=== PATIENT | female | born 1985 | race Caucasian/White ===

== ENCOUNTER → 2018-04-20 12:29 | Outpatient (CLI) | payer OTHER, MEDICAID, SELFPAY ==
--- NOTE | 2018-04-20 | DI.RAD.S_ITS ---
PROCEDURE: XR FOOT RT 2V INDICATIONS: RT FOOT 3RD TOE FRACTURE TECHNIQUE: 2 views of the foot were acquired. COMPARISON: None. FINDINGS: Bones: No fractures or dislocations. No suspicious bony lesions. Soft tissues: No tibiotalar joint effusion. Achilles tendon appears normal. IMPRESSION: A fracture is not seen. Dictated by: Say Murillo M.D. on 04/20/2018 at 13:16 Approved by: Say Murillo M.D. on 04/20/2018 at 13:16
== END ==
PROVIDERS: PCP Internal Medicine; Visit Provider Internal Medicine
DX: S92.501A Displaced unspecified fracture of right lesser toe(s), initial encounter for closed fracture (principal)
CPT/HCPCS: 73620

== ENCOUNTER 2018-09-20 16:45 | Emergency (ER) | payer OTHER, MEDICAID, SELFPAY ==
[2018-09-20 17:04] VITALS: BP 132/88; PULSE 71; RESP 18; TEMP 37; O2SAT 99; BMI 20.4
--- NOTE | 2018-09-20 17:46 | DI.US.S_ITS ---
PROCEDURE: US OB <= 14 WEEKS FETUS INDICATIONS: BLEEDING OUTSIDE/PRIOR DATING DATA: Last menstrual period (LMP): 07/31/18. LMP-based estimated date of delivery (LATONIA): 05/07/19. First dating scan (date and location): 09/20/18. Estimated date of delivery (LATONIA) from first dating scan: 05/15/19. TECHNIQUE: Real-time scanning was performed of the fetus and maternal pelvic organs, with image documentation. Endovaginal scanning was also performed to better visualize the fetus and maternal ovaries. COMPARISON: None. FINDINGS: Embryo: 30 intrauterine identified. pole is identified. [place]-rump length measures 0.45 cm corresponding to an ultrasound age of 6 weeks one day. heart rate measured 95 beats per minute. Gestational sac is irregular and contains debris. Measurement variability in dating: +/- 4 weeks by LMP, +/- 7 days by mean sac diameter (use before 6 weeks gestation if crown-rump length not able to be measured), +/- 5 days by crown-rump length (up to 8 weeks 6 days gestation), +/- 7 days by crown-rump length (up to 13 weeks 6 days gestation). Maternal organs: Right adnexa is not identified and cannot be evaluated. Corpus luteal cyst noted in the left adnexa. Limited images through the kidneys demonstrate no hydronephrosis. IMPRESSION: 1. Single living intrauterine with ultrasound estimated age of 6 weeks 1 day corresponding to ultrasound LATONIA of 05/15/19. 2. Gestational sac is markedly irregular and contains internal debris or. heart rate is low at 95 beats per minute. Findings concerning for threatened . Dictated by: Lupis Bell MD, PhD on 09/20/2018 at 21:02 Approved by: Lupis Bell MD, PhD on 09/20/2018 at 21:05
--- NOTE | 2018-09-20 18:05 | PC.NURSE ---
Patient reports her LMP was 07/31/18 and she had what she thought was a period from 08/24-08/27. Her period is normally very light, like a tsp a day for 5 days and this was similar, about a tsp of blood but only lasted for 3 days. She thought it was a period but then developed sever morning sickness and took a test on 09/11 that was positive. On 09/14 she starting spotting again and has had about a tsp a day for blood for the last week, some brown, some bright red. Mild cramping here and there. Still having severe morning sickness.
--- NOTE | 2018-09-20 19:00 | ED.PREGNANCY ---
HPI - General Chief complaint: Urogenital-Female Stated complaint: 7wks preg,lots of bleeding Time Seen by Provider: 09/20/18 17:45 Source: patient and family Mode of arrival: ambulatory Limitations: no limitations History of Present Illness HPI Narrative: 33-year-old female nonsmoker is a at 7 weeks who complains of bleeding over the past few days and pelvic discomfort similar to when she has a period. Pain is worse with motion and improves with rest. She has not become dizzy nor weak or lightheaded. She has not bled significantly, not enough to saturate a pad. She denies any fever or chills. She denies dysuria, frequency or urgency. She had her 1st child by in [place] but hopes to deliver her 2nd vaginally. MD Complaint: vaginal bleeding Onset (ago): day(s) Pain Consistency: intermittent Location: pelvis Severity: mild Quality: Aching and Cramping Radiation: pelvis Relieving factors: rest Exacerbating factors: movement Associated symptoms: vaginal bleeding Vaginal bleeding: light Patient : Yes OB History - Current : no complications care: none Related Data : 2 Para: 1 Home Medications Medication Instructions Recorded Confirmed multivitamin tablet 1 tab PO DAILY 12/31/17 12/31/17 Allergies Allergy/AdvReac Type Severity Reaction Status Date / Time No Known Drug Allergies Allergy Verified 10/30/17 10:18 Review of Systems Constitutional Denies chills, Denies fever(s), Denies lethargy and Denies weakness Eyes Denies change in vision, Denies eye discharge, Denies irritation and Denies loss of vision ENT Ears, Nose, Mouth, and Throat: Denies change in voice, Denies neck pain and Denies sore throat Cardiovascular Denies chest pain, Denies irregular heart rhythm, Denies lightheadedness, Denies palpitations, Denies dyspnea, Denies dyspnea on exertion and Denies orthopnea Respiratory Denies cough, Denies dyspnea, Denies dyspnea on exertion and Denies wheezing Gastrointestinal Gastrointestinal: Denies abdominal pain, Denies change in bowel habits, Denies diarrhea, Denies nausea and Denies vomiting Genitourinary Reports abnormal vaginal bleeding, Denies hematuria, Reports pelvic pain, Denies flank pain, Denies urinary incontinence and Denies urinary urgency Musculoskeletal Denies neck pain Integumentary/Breasts Denies pruritus, Denies erythema, Denies rash and Denies wounds Neurologic Denies confusion, Denies loss of vision and Denies weakness Psychiatric Denies anxiety, Denies confusion, Denies depression, Denies homicidal ideation and Denies suicidal ideation Endocrine Denies palpitations Hematologic/Lymphatic Denies easy bruising Allergic/Immunologic Denies wheezing PMFSH - Past Medical History Medical history: Reports non-contributory Surgical history: Reports non-contributory 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 Extraoccular muscles are intact bilaterally. There is no subconjunctival hemorrhage or exudate. CHEST: Lungs are clear to auscultation bilaterally and free of wheezes, rales, or rhonchi. Heart rate is regular rhythm, there are no murmurs, clicks, rubs, or gallops. There is no chest wall tenderness. ABD: Abdomen is soft and mildly tender in the suprapubic region There is no guarding or rebound. Bowel sounds are normal in all 4 quadrants. There is no mass or organomegaly. EXT: Full painless ROM of all extremities with no loss of sensation or strength. SKIN: Warm, pink, and dry. No erythema or rash Initial Vital Signs Initial Vital Signs: Vital Signs Temperature 98.6 F 09/20/18 17:04 Pulse Rate 71 09/20/18 17:04 Respiratory Rate 18 09/20/18 17:04 Blood Pressure 132/88 09/20/18 17:04 Pulse Oximetry 99 09/20/18 17:04 Course Orders Ordered: ED Orders 09/20/18 17:46 US OB <= 14 weeks fetus Stat 09/20/18 18:08 ABO RH Type Stat HCG Quantitative Stat Consultations Consultation #1: Local OB contacted and are happy to follow this patient locally if patient so desires but she would require transfer to a facility which could assist with once the time comes Vital Signs - 8 hr 09/20/18 17:04 Temperature 98.6 F Pulse Rate 71 Respiratory Rate 18 Blood Pressure 132/88 Pulse Oximetry 99 MDM - OB/Uterine Contractions Lab Data Lab Results 09/20/18 09/20/18 Range/Units 18:08 18:08 HCG, Quant [id number] mIU/mL Blood Type AB Positive Point of Care Testing Test Results Positive Urine Dip Bedside Urine Glucose Negative Bedside Urine Bilirubin - Negative Bedside Urine Ketone - Negative Urine Specific [place] 1.025 Bedside Urine Occult Blood - Negative Bedside Urine pH 6.0 Bedside Urine Protein - Negative Bedside Urine Urobilinogen - Negative Bedside Urine Nitrite - Negative Bedside Urine Leukocytes - Negative Esterase Imaging Data US - abdomen: Radiologist's impression: [address] [address] Ultrasound Report Signed Patient: Jose Dimas#: [id number] : 1985Acct:[id number] Age/Sex: 33 / FDate of Service: 09/20/18 Loc: ED Accession Number: [id number] Procedure: US OB <= 14 weeks fetus Ordering Provider: Devin Veliz D.O. PROCEDURE: US OB <= 14 WEEKS FETUS INDICATIONS: BLEEDING OUTSIDE/PRIOR DATING DATA: Last menstrual period (LMP): 07/31/18. LMP-based estimated date of delivery (LATONIA): 05/07/19. First dating scan (date and location): 09/20/18. Estimated date of delivery (LATONIA) from first dating scan: 05/15/19. TECHNIQUE: Real-time scanning was performed of the fetus and maternal pelvic organs, with image documentation. Endovaginal scanning was also performed to better visualize the fetus and maternal ovaries. COMPARISON: None. FINDINGS: Embryo: 30 intrauterine identified. pole is identified. [place]-rump length measures 0.45 cm corresponding to an ultrasound age of 6 weeks one day. heart rate measured 95 beats per minute. Gestational sac is irregular and contains debris. Measurement variability in dating: +/- 4 weeks by LMP, +/- 7 days by mean sac diameter (use before 6 weeks gestation if crown-rump length not able to be measured), +/- 5 days by crown-rump length (up to 8 weeks 6 days gestation), +/- 7 days by crown-rump length (up to 13 weeks 6 days gestation). Maternal organs: Right adnexa is not identified and cannot be evaluated. Corpus luteal cyst noted in the left adnexa. Limited images through the kidneys demonstrate no hydronephrosis. IMPRESSION: 1. Single living intrauterine with ultrasound estimated age of 6 weeks 1 day corresponding to ultrasound LATONIA of 05/15/19. 2. Gestational sac is markedly irregular and contains internal debris or. heart rate is low at 95 beats per minute. Findings concerning for threatened . Dictated by: Lupis Bell MD, PhD on 09/20/2018 at 21:02 Approved by: Lupis Bell MD, PhD on 09/20/2018 at 21:05 [facility] Narrative Medical decision making narrative: Multiple etiologies for patient's symptoms considered including: [Ectopic versus threatened AB vs implantation bleed vs other] Findings and discharge diagnosis discussed with patient/family followed by verbalization of understanding Return precautions discussed with patient/family whom verbalize understanding. Discharge Plan Departure Patient Disposition: Home Clinical Impression: Abnormal vaginal bleeding Discharge Date/Time: 09/20/18 20:14 Interventions: ED Discharge Assessment Last Done: 09/20/18 20:13 Instructions: DI for Vaginal Bleeding During Activity Restrictions/Additional Instructions: *You have been diagnosed with [ vaginal bleeding and ] *What to do: *Follow up with Dr. Robles in 2-3 days, call for an appointment. Let them know you were seen in the Emergency Department and that we ask that you be seen in follow up *Return to ER if you should have any new, worsening or concerning symptoms, such as [ increasing pain, fever over 101 F, increased bleeding, to the point of saturating a pad every hour for multiple hours or any other bothersome symptoms] Prescriptions: No Action multivitamin tablet 1 tab PO DAILY RF: 0 Referrals: Osei Jones MD [Primary Care Provider] - Jose Robles MD [Physician] -
[2018-09-20 19:13] LABS: HCG Quantitative /Beta subunit 265680 mIU/mL
--- NOTE | 2018-09-20 19:18 | ED_ITS ---
HPI - General Chief complaint: Urogenital-Female Stated complaint: 7wks preg,lots of bleeding Time Seen by Provider: 09/20/18 17:45 Source: patient and family Mode of arrival: ambulatory Limitations: no limitations History of Present Illness HPI Narrative: 33-year-old female nonsmoker is a at 7 weeks who complains of bleeding over the past few days and pelvic discomfort similar to when she has a period. Pain is worse with motion and improves with rest. She has not become dizzy nor weak or lightheaded. She has not bled significantly, not enough to saturate a pad. She denies any fever or chills. She denies dysuria, frequency or urgency. She had her 1st child by in [place] but hopes to deliver her 2nd vaginally. MD Complaint: vaginal bleeding Onset (ago): day(s) Pain Consistency: intermittent Location: pelvis Severity: mild Quality: Aching and Cramping Radiation: pelvis Relieving factors: rest Exacerbating factors: movement Associated symptoms: vaginal bleeding Vaginal bleeding: light Patient : Yes OB History - Current : no complications care: none Related Data : 2 Para: 1 Home Medications Medication Instructions Recorded Confirmed multivitamin tablet 1 tab PO DAILY 12/31/17 12/31/17 Allergies Allergy/AdvReac Type Severity Reaction Status Date / Time No Known Drug Allergies Allergy Verified 10/30/17 10:18 Review of Systems Constitutional Denies chills, Denies fever(s), Denies lethargy and Denies weakness Eyes Denies change in vision, Denies eye discharge, Denies irritation and Denies loss of vision ENT Ears, Nose, Mouth, and Throat: Denies change in voice, Denies neck pain and Denies sore throat Cardiovascular Denies chest pain, Denies irregular heart rhythm, Denies lightheadedness, Denies palpitations, Denies dyspnea, Denies dyspnea on exertion and Denies orthopnea Respiratory Denies cough, Denies dyspnea, Denies dyspnea on exertion and Denies wheezing Gastrointestinal Gastrointestinal: Denies abdominal pain, Denies change in bowel habits, Denies diarrhea, Denies nausea and Denies vomiting Genitourinary Reports abnormal vaginal bleeding, Denies hematuria, Reports pelvic pain, Denies flank pain, Denies urinary incontinence and Denies urinary urgency Musculoskeletal Denies neck pain Integumentary/Breasts Denies pruritus, Denies erythema, Denies rash and Denies wounds Neurologic Denies confusion, Denies loss of vision and Denies weakness Psychiatric Denies anxiety, Denies confusion, Denies depression, Denies homicidal ideation and Denies suicidal ideation Endocrine Denies palpitations Hematologic/Lymphatic Denies easy bruising Allergic/Immunologic Denies wheezing PMFSH - Past Medical History Medical history: Reports non-contributory Surgical history: Reports non-contributory 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 Extraoccular muscles are intact bilaterally. There is no subconjunctival hemorrhage or exudate. CHEST: Lungs are clear to auscultation bilaterally and free of wheezes, rales, or rhonchi. Heart rate is regular rhythm, there are no murmurs, clicks, rubs, or gallops. There is no chest wall tenderness. ABD: Abdomen is soft and mildly tender in the suprapubic region There is no guarding or rebound. Bowel sounds are normal in all 4 quadrants. There is no mass or organomegaly. EXT: Full painless ROM of all extremities with no loss of sensation or strength. SKIN: Warm, pink, and dry. No erythema or rash Initial Vital Signs Initial Vital Signs: Vital Signs Temperature 98.6 F 09/20/18 17:04 Pulse Rate 71 09/20/18 17:04 Respiratory Rate 18 09/20/18 17:04 Blood Pressure 132/88 09/20/18 17:04 Pulse Oximetry 99 09/20/18 17:04 Course Orders Ordered: ED Orders 09/20/18 17:46 US OB <= 14 weeks fetus Stat 09/20/18 18:08 ABO RH Type Stat HCG Quantitative Stat Consultations Consultation #1: Local OB contacted and are happy to follow this patient locally if patient so desires but she would require transfer to a facility which could assist with once the time comes Vital Signs - 8 hr 09/20/18 17:04 Temperature 98.6 F Pulse Rate 71 Respiratory Rate 18 Blood Pressure 132/88 Pulse Oximetry 99 MDM - OB/Uterine Contractions Lab Data Lab Results 09/20/18 09/20/18 Range/Units 18:08 18:08 HCG, Quant [id number] mIU/mL Blood Type AB Positive Point of Care Testing Test Results Positive Urine Dip Bedside Urine Glucose Negative Bedside Urine Bilirubin - Negative Bedside Urine Ketone - Negative Urine Specific [place] 1.025 Bedside Urine Occult Blood - Negative Bedside Urine pH 6.0 Bedside Urine Protein - Negative Bedside Urine Urobilinogen - Negative Bedside Urine Nitrite - Negative Bedside Urine Leukocytes - Negative Esterase Imaging Data US - abdomen: Radiologist's impression: [address] [address] Ultrasound Report Signed Patient: Jose Dimas#: [id number] : 1985Acct:[id number] Age/Sex: 33 / FDate of Service: 09/20/18 Loc: ED Accession Number: [id number] Procedure: US OB <= 14 weeks fetus Ordering Provider: Devin Veliz D.O. PROCEDURE: US OB <= 14 WEEKS FETUS INDICATIONS: BLEEDING OUTSIDE/PRIOR DATING DATA: Last menstrual period (LMP): 07/31/18. LMP-based estimated date of delivery (LATONIA): 05/07/19. First dating scan (date and location): 09/20/18. Estimated date of delivery (LATONIA) from first dating scan: 05/15/19. TECHNIQUE: Real-time scanning was performed of the fetus and maternal pelvic organs, with image documentation. Endovaginal scanning was also performed to better visualize the fetus and maternal ovaries. COMPARISON: None. FINDINGS: Embryo: 30 intrauterine identified. pole is identified. [place]-rump length measures 0.45 cm corresponding to an ultrasound age of 6 weeks one day. heart rate measured 95 beats per minute. Gestational sac is irregular and c ontains debris. Measurement variability in dating: +/- 4 weeks by LMP, +/- 7 days by mean sac diameter (use before 6 weeks gestation if crown-rump length not able to be measured), +/- 5 days by crown-rump length (up to 8 weeks 6 days gestation), +/- 7 days by crown-rump length (up to 13 weeks 6 days gestation). Maternal organs: Right adnexa is not identified and cannot be evaluated. C orpus luteal cyst noted in the left adnexa. Limited images through the kidneys demonstrate no hydronephrosis. IMPRESSION: 1. Single living intrauterine with ultrasound estimated age of 6 weeks 1 day corresponding to ultrasound LATONIA of 05/15/19. 2. Gestational sac is markedly irregular and contains internal debris or. heart rate is low at 95 beats per minute. Findings concerning for threatened . Dictated by: Lupis Bell MD, PhD on 09/20/2018 at 21:02 Approved by: Lupis Bell MD, PhD on 09/20/2018 at 21:05 [facility] Narrative Medical decision making narrative: Multiple etiologies for patient's symptoms considered including: [Ectopic versus threatened AB vs implantation bleed vs other] Findings and discharge diagnosis discussed with patient/family followed by verbalization of understanding Return precautions discussed with patient/family whom verbalize understanding. Discharge Plan Departure Patient Disposition: Home Clinical Impression: Abnormal vaginal bleeding Discharge Date/Time: 09/20/18 20:14 Interventions: ED Discharge Assessment Last Done: 09/20/18 20:13 Instructions: DI for Vaginal Bleeding During Activity Restrictions/Additional Instructions: *You have been diagnosed with [ vaginal bleeding and ] *What to do: *Follow up with Dr. Robles in 2-3 days, call for an appointment. Let them know you were seen in the Emergency Department and that we ask that you be seen in follow up *Return to ER if you should have any new, worsening or concerning symptoms, such as [ increasing pain, fever over 101 F, increased bleeding, to the point of saturating a pad every hour for multiple hours or any other bothersome symptoms] Prescriptions: No Action multivitamin tablet 1 tab PO DAILY RF: 0 Referrals: Osei Jones MD [Primary Care Provider] - Jose Robles MD [Physician] -
[2018-09-20 20:13] VITALS: BP 110/63; PULSE 76; RESP 16; O2SAT 99
== END 2018-09-20 20:14 | disposition home or self-care (01) ==
PROVIDERS: Emergency Medicine; Emergency Provider Emergency Medicine; PCP Internal Medicine
DX: O20.9 Hemorrhage in early pregnancy, unspecified (principal); Z3A.01 Less than 8 weeks gestation of pregnancy
CPT/HCPCS: 76801; 76817; 81003; 81025; 84702; 86900; 86901; 99283

== ENCOUNTER → 2018-09-23 09:48 | Outpatient (CLI) | payer OTHER, MEDICAID, SELFPAY ==
[2018-09-23 12:35] LABS: HCG Quantitative /Beta subunit 264170 mIU/mL
== END ==
PROVIDERS: PCP Internal Medicine; Visit Provider Family Medicine
DX: O20.0 Threatened abortion (principal)
CPT/HCPCS: 36415; 84702

== ENCOUNTER → 2018-10-13 09:49 | Outpatient (CLI) | payer OTHER, MEDICAID, SELFPAY ==
--- NOTE | 2018-10-13 09:50 | DI.US.S_ITS ---
PROCEDURE: US PELVIC COMPLETE INDICATIONS: MISSED AB TECHNIQUE: Real-time scanning was performed of the pelvic organs, with image documentation. Additional endovaginal scanning was necessary due to incomplete visualization of the adnexal and endometrial structures by transabdominal scanning. COMPARISON: None. FINDINGS: Transabdominal scanning: . No pathologic free abdominal or pelvic fluid. Endovaginal scanning: Uterus: The uterus measures 10.2 x 5.6 x 8.7 cm. The endometrium is thickened and an irregularly-shaped gestational sac with a dumbbell appearance is present. There is no pole or yolk sac visualized within the gestational sac. Ovaries: Not visualized. IMPRESSION: 1. Irregularly shaped empty gestational sac within the endometrium as above suggesting missed . Dictated by: Mariella Mcgovern M.D. on 10/13/2018 at 11:04 Approved by: Mariella Mcgovern M.D. on 10/13/2018 at 11:06
[2018-10-13 11:43] LABS: HCG Quantitative /Beta subunit 43147 mIU/mL
== END ==
PROVIDERS: PCP Family Medicine; Visit Provider Family Medicine
DX: O02.1 Missed abortion (principal)
CPT/HCPCS: 36415; 76830; 76856; 84702

== ENCOUNTER 2018-10-17 10:15 | Day surgery (SDC) | payer OTHER, MEDICAID, SELFPAY ==
[2018-10-14 07:54] VITALS: BMI 21.1
[2018-10-17] VITALS (9 sets, daily range): BP systolic 100–105; BP diastolic 58–72; PULSE 54–69; RESP 11–17; TEMP 36.4–37.4; O2SAT 96–100; BMI 20.4
--- NOTE | 2018-10-17 | PATH_ITS ---
[facility] Accession Number: [id number] . 01 Material submitted: . product of conception - POC . 02 Diagnosis: Products of Conception, Removal: Chorionic villi, consistent with products of conception. MRV/10/19/2018 . 02 Electronically signed: . Polly Royal MD, Pathologist NPI- [id number] . 01 Gross description: . Received in formalin, labeled product of conception, are multiple fragments of red-brown spongy tissue (34 grams, 6.0 x 4.0 x 2.3 cm in aggregate). No tissue is identified. Cage Maker Machine tissue is submitted in cassettes A1-A4. ([id number]) /MRV . 02 Pathologist provided ICD-10: O02.1 . 02 CPT . 948190 Performed at: 01 [facility] [address] [id number] MD Shahram Baker MD Phone: [phone] Performed at: 02 [facility] [address] [place], [place] [id number] MD Polly Royal MD Phone: [phone]
[2018-10-17] MEDS: LACTATED RINGERS 1,000 ML 42 ML IV (11:45)
--- NOTE | 2018-10-17 13:14 | SUR.OPER ---
Lithotomy on padded OR bed, head on pillow, arms secured on padded arm boards at <90 degrees abduction. Legs secured in padded yellow fins stirrups.
--- NOTE | 2018-10-17 13:29 | PM.GYNOP.1 ---
Operative Date/Time/Diagnoses Date of procedure: 10/17/18 Time of procedure: 13:29 Pre-op diagnosis: Missed of twins at 6 weeks gestation Post-op diagnosis: same Procedure: Procedures Operation Date: 10/17/18 11:15 Actual Procedures Side Surgeon p Panfilo&Scarlet - Shabbir Hoskins MD Indications: Missed of twins at 6 weeks gestation Surgeon: Lizzy Hoskins Anesthesia Type: General (LMA) Operative Notes Findings: Eight week size anteverted uterus Large amount of products of conception Closure Type: not applicable Specimen(s): other (Products of conception) Applied: catheter (In and out) Estimated blood loss (mL): 250 Blood products transfused: none Procedure in detail: After informed consent was obtained, the patient was taken to the operating room where she was placed in the dorsal supine position. After adequate LMA general anesthesia was achieved, she was placed in the dorsal lithotomy position, and prepped and draped in the usual sterile fashion. a bimanual exam was performed which revealed an 8 week size anteverted uterus. A bivalve speculum was placed into the vagina and the anterior lip of the cervix grasped with a single-tooth tenaculum. The cervical os was sequentially dilated until the 8. Curved plastic curette could pass easily into the endometrial cavity. several passes with suction revealed a large amount of tissue. The suction curette was removed and the polyp forceps were used to remove a large piece of placenta. Gentle sharp curettage was performed yielding minimal amount of tissue. Several more passes with suction revealed blood only. Upon removing the suction curette there was a large amount of bleeding. the bivalve speculum was removed from the vagina and bimanual massage was performed which revealed a well contracted 7 week size uterus. The bleeding stopped after bimanual massage. 10 units of Pitocin were given in the IV fluids. Observation of the cervical os revealed normal amount of bleeding. Single-tooth tenaculum was removed from the anterior lip of the cervix. The bivalve speculum was removed from the vagina. Sponge, lap, and instrument counts were correct x2. Patient tolerated the procedure well, and was taken to PACU in stable condition. Complications: none Post-operative Condition: stable Plan for aftercare: Home after recovery
--- NOTE | 2018-10-21 07:49 | PM.HP.1 ---
History of Present Illness Date Patient Seen: 10/17/18 Time Patient Seen: 10:00 Chief complaint: [id number] Narrative: Patient is a 33-year-old with a missed here for a suction D&C Patient History Medical History (Updated 10/14/18 @ 08:03 by Starla Katz RN) Shingles (Acute) Surgical History (Updated 10/14/18 @ 08:03 by Starla Katz RN) History of section (Acute) History of dilation and curettage (Acute) Social History marital status: household members: spouse and children Smoking Status: Never smoker alcohol intake: current substance use type: does not use Family & Social History Social History: household members spouse,children Tobacco & Substance use: Smoking Status Never smoker alcohol intake current alcohol intake frequency other Substance Use Type does not use Meds Home Medications Medication Instructions Recorded Confirmed Type No Known Home Medications 10/17/18 10/17/18 History oxycodone-acetaminophen [Percocet] 1 tab PO Q4-6H PRN #10 tab 10/17/18 Rx Allergies Allergy/AdvReac Type Severity Reaction Status Date / Time No Known Drug Allergies Allergy Verified 10/17/18 11:36 Exam Vital Signs (past 8 hours): Oxygen Delivery Method Room Air Narrative Exam Narrative: HEENT: No thyromegaly, no anterior cervical or supraclavicular lymphadenopathy. Lungs:Clear to auscultation bilaterally, no wheezes. Cardiovascular: Regular rate and rhythm, no murmurs, rubs, or gallops. Abdomen: No scars. No hepatosplenomegaly. No masses palpable. External genitalia: Normal Vagina: Normal Cervix: Normal Bimanual exam: 8 Week size uterus. Mobile. Rectal: No masses. Assessment & Plan Assessment & Plan narrative: Assessment: 33-year-old with a missed Plan: Suction D&C The risks, benefits, and alternatives to the procedure were explained to the patient. The risks including bleeding, infection, and uterine perforation. She understands these risks and agrees to proceed. A full PAR-Q was held and consent form was signed
== END 2018-10-17 15:08 | disposition home or self-care (01) ==
PROVIDERS: PCP Family Medicine; Visit Provider Obstetrics & Gynecology
PROC: (CPT 58120; principal; 2018-10-17 11:15)
DX: O02.1 Missed abortion (principal); Z3A.01 Less than 8 weeks gestation of pregnancy
CPT/HCPCS: 59820; 86850; 86900; 86901; J1100; J1885; J2405; J2590; J2704; J3010

== ENCOUNTER → 2019-01-04 08:59 | Outpatient (CLI) | payer OTHER, MEDICAID, SELFPAY ==
--- NOTE | 2019-01-04 09:00 | DI.US.S_ITS ---
PROCEDURE: US PELVIC COMPLETE INDICATIONS: POST DILATION AND CURETTAGE BLEEDING. Additional information: Continuous bleeding for greater than 2 months. TECHNIQUE: Real-time scanning was performed of the pelvic organs, with image documentation. Additional endovaginal scanning was necessary due to incomplete visualization of the adnexal and endometrial structures by transabdominal scanning. COMPARISON: [facility], US, US OB <= 14 WEEKS FETUS, 09/20/2018, 18:23. [facility], US, US PELVIC COMPLETE, 10/13/2018, 10:14. FINDINGS: Transabdominal scanning: Limited scanning through the kidneys shows no hydronephrosis. No pathologic free abdominal or pelvic fluid. Endovaginal scanning: Uterus: Uterus is anteverted and normal in size at 8.6 x 5.4 x 3.7 cm. Endometrium: Measures 17.1 mm in combined thickness. Marked heterogeneity with small cystic component. No increased vascularity. Ovaries: Right ovary measures 20 x 20 x 1.8 cm. No mass. Left ovary measures 3.6 x 3.1 x 2.5 cm. Hypoechoic region with posterior acoustic transmission measuring 2.1 x 2.4 x 2.6 cm, previously 1.5 x 1.4 x 1.1 cm. No significant surrounding hyperemia. IMPRESSION: 1. Abnormal thickened and heterogeneous endometrial contents measuring up to 1.7 cm. No increased vascularity demonstrated. Differential includes retained blood clot versus avascular retained products of conception. 2. Hypoechoic left ovarian lesion measuring 2.6 cm. This may represent a collapsed corpus luteum cyst, which was present on US 09/20/2018. Dictated by: Jason Rothman M.D. on 01/04/2019 at 13:24 Approved by: Jason Rothman M.D. on 01/04/2019 at 14:04
== END ==
PROVIDERS: PCP Family Medicine; Visit Provider Obstetrics & Gynecology
DX: N92.0 Excessive and frequent menstruation with regular cycle (principal); R93.89 Abnormal findings on diagnostic imaging of other specified body structures
CPT/HCPCS: 76830; 76856

== ENCOUNTER → 2019-01-17 15:25 | Outpatient (CLI) | payer OTHER, MEDICAID, SELFPAY ==
[2019-01-17 16:30] LABS: HCG Quantitative /Beta subunit < 2.39 mIU/mL
== END ==
PROVIDERS: PCP Family Medicine; Visit Provider Obstetrics & Gynecology
DX: O03.4 Incomplete spontaneous abortion without complication (principal)
CPT/HCPCS: 36415; 84702

== ENCOUNTER → 2019-06-12 09:53 | Outpatient (CLI) | payer OTHER, MEDICAID, SELFPAY ==
[2019-06-12 14:02] LABS: HCG Quantitative /Beta subunit 38203 mIU/mL
== END ==
PROVIDERS: PCP Family Medicine; Visit Provider Obstetrics & Gynecology
DX: N91.2 Amenorrhea, unspecified (principal)
CPT/HCPCS: 36415; 84702

== ENCOUNTER → 2019-06-19 12:13 | Outpatient (CLI) | payer OTHER, MEDICAID, SELFPAY ==
[2019-06-19 13:58] LABS: HCG Quantitative /Beta subunit 120480 mIU/mL
== END ==
PROVIDERS: PCP Family Medicine; Visit Provider Student in an Organized Health Care Education/Training Program
DX: O03.9 Complete or unspecified spontaneous abortion without complication (principal)
CPT/HCPCS: 36415; 84702

== ENCOUNTER → 2020-01-16 13:00 | Oncology outpatient (ONC) | payer OTHER, MEDICAID, SELFPAY ==
[2020-01-03] MEDS: IRON SUCROSE 300 MG in SODIUM CHLORIDE 0.9% 100 ML 230 ML IV (14:00)
[2020-01-03 14:12] VITALS: BP 111/77; PULSE 88; RESP 18; TEMP 36.8; O2SAT 97
[2020-01-09] MEDS: IRON SUCROSE 300 MG in SODIUM CHLORIDE 0.9% 100 ML 230 ML IV (14:11)
[2020-01-09 14:21] VITALS: BP 108/64; PULSE 80; RESP 18; TEMP 36.7; O2SAT 96
[2020-01-16 13:17] VITALS: BP 113/76; PULSE 100; RESP 18; TEMP 36.7; O2SAT 97
[2020-01-16] MEDS: IRON SUCROSE 300 MG in SODIUM CHLORIDE 0.9% 100 ML 230 ML IV (13:26)
== END ==
PROVIDERS: PCP Family Medicine; Referring Provider Family Medicine; Visit Provider Obstetrics & Gynecology
DX: O99.019 Anemia complicating pregnancy, unspecified trimester (principal)
CPT/HCPCS: 96365; J1756

== ENCOUNTER → 2020-05-15 11:18 | Outpatient (CLI) | payer OTHER, MEDICAID, SELFPAY ==
--- NOTE | 2020-05-15 11:24 | DI.RAD.S_ITS ---
PROCEDURE: XR SHOULDER RT MIN 2V INDICATIONS: right shoulder pain TECHNIQUE: 3 views of the shoulder were acquired. COMPARISON: None. FINDINGS: Bones: No fractures or dislocations. No suspicious bony lesions. Visualized ribs appear intact. Soft tissues: No suspicious soft tissue calcifications. IMPRESSION: No trauma found. Dictated by: Say Murillo M.D. on 05/15/2020 at 11:57 Approved by: Say Murillo M.D. on 05/15/2020 at 11:58
--- NOTE | 2020-05-15 11:24 | DI.RAD.S_ITS ---
PROCEDURE: XR THORACIC SPINE 3V INDICATIONS: rt shoulder neck and scapular pain TECHNIQUE: 3 views of the thoracic spine were acquired. COMPARISON: None. FINDINGS: Bones: No fractures or dislocations. There is mild S-shaped curvature of the thoracic spine. No suspicious bony lesions. Numeral 12 pairs of ribs are noted, and appear intact where visualized. Soft tissues: No paravertebral stripe thickening. IMPRESSION: No compression deformities or degenerative changes of the thoracic spine. Dictated by: Mariella Mcgovern M.D. on 05/15/2020 at 15:14 Approved by: Mariella Mcgovern M.D. on 05/15/2020 at 15:36
--- NOTE | 2020-05-15 11:24 | DI.RAD.S_ITS ---
PROCEDURE: XR RIBS BI 3V INDICATIONS: right shoulder neck and scapular pain TECHNIQUE: 2 views of the right ribs were acquired. COMPARISON: None. FINDINGS: Surgical changes and devices: None. Bones and chest wall: No fractures or dislocations. No suspicious bony lesions. Overlying soft tissues appear unremarkable. Lungs and pleura: The visualized lung appears clear. No pleural effusions or pneumothorax are visible. IMPRESSION: No displaced rib fractures visualized. No acute cardiopulmonary findings. Dictated by: Mariella Mcgovern M.D. on 05/15/2020 at 15:08 Approved by: Mariella Mcgovern M.D. on 05/15/2020 at 15:14
--- NOTE | 2020-05-15 11:24 | DI.RAD.S_ITS ---
PROCEDURE: XR CERVICAL SPINE 2V OR 3V INDICATIONS: rt shoulder neck and scapular pain TECHNIQUE: 3 view(s) of the cervical spine were acquired. COMPARISON: None. FINDINGS: Bones: No fractures or dislocations to the T1 level. The lateral masses of C1 appear intact on the odontoid view. No suspicious bony lesions. There is a mild degree of C5-6 degenerative disc height reduction. Soft tissues: No prevertebral soft tissue swelling. IMPRESSION: No trauma found. Mild degenerative disc disease C5-6 without subluxation. Depending on the current clinical status follow-up by MR scanning for disc herniation may be warranted. Dictated by: Say Murillo M.D. on 05/15/2020 at 11:58 Approved by: Say Murillo M.D. on 05/15/2020 at 11:59
[2020-05-15 12:04] LABS: Add Manual Diff / Slide Review NO; Basophils Absolute Auto 0 /uL (0-100); Basophils Percent Auto 0.7 % (0-2); Eosinophils Absolute Auto 100 /uL (0-450); Eosinophils Percent Auto 2.1 % (2-4); Hematocrit 42.3 % (36-46); Hemoglobin 13.9 g/dL (12.0-16.0); Lymphocytes Absolute Auto 2100 /uL (1100-4500); Lymphocytes Percent Auto 33.3 % (25-40); Mean Corpuscular HGB Conc 32.9 % (30-36); Mean Corpuscular Hemoglobin 28.7 PG (26-34); Mean Corpuscular Volume 87.2 fL (80-100); Monocytes Absolute Auto 500 /uL (0-900); Monocytes Percent Auto 7.7 % (3-14); Neutrophils Absolute Auto 3500 /uL (1500-7000); Neutrophils Percent Auto 56.2 % (50-75); Platelet Count 295 X10^3/uL (150-400); Red Blood Cell Count 4.85 X10^6/uL (4.0-5.2); Red Cell Distribution Width 13.6 % (11.6-14.8); White Blood Cell Count 6.2 X10^3/uL (4.5-11.0)
[2020-05-15 12:26] LABS: Erythrocyte Sedimentation Rate 2 MM/HR (0-20)
[2020-05-15 12:28] LABS: C-Reactive Protein Quant < 0.5 mg/dL (<1.0)
[2020-05-15 12:54] LABS: TSH w/ Reflex to FT4 1.47 uIU/mL (0.47-4.68)
== END ==
PROVIDERS: PCP Family Medicine; Referring Provider Family Medicine; Visit Provider Family Medicine
DX: M54.2 Cervicalgia (principal); M25.511 Pain in right shoulder; M50.322 Other cervical disc degeneration at C5-C6 level; G89.29 Other chronic pain
CPT/HCPCS: 36415; 71101; 72040; 72072; 73030; 84443; 85025; 85651; 86140

== ENCOUNTER → 2020-06-04 13:39 | Outpatient (CLI) | payer OTHER, MEDICAID, SELFPAY | PROVIDERS: PCP Family Medicine; Visit Provider Registered Nurse | DX: R30.0 Dysuria (principal); N89.8 Other specified noninflammatory disorders of vagina | CPT/HCPCS: 87086; 87210 ==

== ENCOUNTER 2021-01-16 11:15 | Outpatient (RCR) | payer OTHER, MEDICAID, SELFPAY ==
--- NOTE | 2020-12-23 12:24 | PT.OIE ---
Current Diagnoses Other chronic pain (12/23/20) Pain in right shoulder (12/23/20) Radiculopathy, cervical region (12/23/20) Cervicalgia (12/23/20) Pain in thoracic spine (12/23/20) Past Medical History (Last Reviewed 06/04/20 @ 14:09 by HEATHER Carney) Anxiety (~2005) Chicken pox (~1985) Chronic back pain (~1999) History of section History of dilation and curettage Shingles Past Surgical History (Last Reviewed 06/04/20 @ 14:09 by HEATHER Carney) History of section History of dilation and curettage Visit Care Team Role Provider Type Jose Robles MD Attending Provider Physician Family Provider Primary Care Provider Referring Provider Specialty: Family Practice Address: [address] [place] [address] Email: [email or web address] Therapy Initial Evaluation PT-OP-A Visit Information Start: 12/23/20 09:59 Freq: Status: Active Protocol: Document 12/23/20 10:00 (Rec: 12/23/20 10:31 [email or web address]) Out-Patient Physical Therapy Visit Information Visit Information Visit Type Initial Evaluation Visit Start Time 08:15 Visit Stop Time 09:00 Total Visit Minutes 45 Visit Number 07/07 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 History of Current Condition Abbi is a 35yo female here for her R sided chronic neck pain and radiating R scapular pain since 17 years old. She has 9/10 pain between her R scapular and spine which is worse with activity and at the end of the day. She tends to feel better with neck/ head support with pillows, laying down and use of heat pad. She also says she notices some weakness at times and decreased strength in her right UE. She denies any tingling/ numbness. Over the past 6 months, pt has been doing conservative management with chiropractic visit, massage therapy and accupunture but none of them helps. She has a 3 year old, 9 year old and 9 month old so she has to carry them often which triggers her pain a lot. Prior Treatments and Tests Pt had x-ray for C/S, R shoulder and thoracic spine. 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 Robles stated pt will need MRI of her cervical spine if conservative maangement fails. Will consider steroid injection as well. Current Functional Impairments (Reported) Functional Limitations- ADL's difficulty carrying her children difficulty turning her head to R while driving. Functional Limitations- Recreation/ unable to UE strengthening ex. Hobbies PT-OP-C Subjective Start: 12/23/20 09:59 Freq: Status: Active Protocol: Document 12/23/20 10:00 HH (Rec: 12/23/20 10:31 [email or web address]) Patient Questionnaires Neck Disability Index NDI Score 29 Neck Disability Index Impairment 40 to 59% Impaired (Score 20- 29) Quick Dash- Upper Extremity Quick Dash UE Score 59.09 Quick Dash UE Impairment 40 to 59% Impaired (Score 40- 59) OP-PT Pain Assessment Location R neck Intensity 4 Scale Used Numeric (0 - 10) Description Phantom,Pinching,Pressure, Pulling,Radiating Frequency Frequent Pain Aggravating Factors ADL's,Activity,Exercise, Lifting Pain Alleviating Factors Heat,Inactivity,Lying Supine R scapula pain Pain Location Details between spine and medial border or scapula Intensity 9 Scale Used Numeric (0 - 10) Description Pinching,Pressure,Pulling, Radiating,Sharp,Shooting Frequency Frequent Pain Aggravating Factors ADL's,Activity,Exercise, Lifting Pain Alleviating Factors Heat,Inactivity,Lying Supine PT-OP-F Manual Assessment Start: 12/23/20 09:59 Freq: Status: Active Protocol: Document 12/23/20 10:00 HH (Rec: 12/23/20 10:31 [email or web address]) Manual Assessments Soft Tissue Assessment Soft Tissue Mobility Assessment hypertonicity at R distal levator scapular, R cervical paraspinals Joint Mobility Assessment Joint Mobility Assessment limited lower cervical extension and R rotation and upper thoracic extension and R rotation. PT-OP-H Neuro Start: 12/23/20 09:59 Freq: Status: Active Protocol: Document 12/23/20 10:00 HH (Rec: 12/23/20 10:31 [email or web address]) Sensation Evaluation Gross Sensation Gross Sensation WNL PT-OP-J Posture/Palpation/Skin Start: 12/23/20 09:59 Freq: Status: Active Protocol: Document 12/23/20 10:00 HH (Rec: 12/23/20 10:31 [email or web address]) Posture Evaluation Position Standing Head/C-Spine Posture Forward Head T-Spine Posture Rotation Left Shoulder Posture (R) Rounded Scapula Posture (R) Protracted,(R) Winged Arm Posture (R) Internally Rotated PT-OP-K Range of Motion Start: 12/23/20 09:59 Freq: Status: Active Protocol: Document 12/23/20 10:00 HH (Rec: 12/23/20 10:31 [email or web address]) Cervical Spine Range of Motion Cervical Spine Active Degrees Testing Position Sitting Flexion 55 Extension 50 Rotation Left 85 Rotation Right 72 Lateral Flexion Left 48 Lateral Flexion Right 40 ROM Limitations Soft Tissue Tightness,Bony Restriction,Muscle Weakness, Pain Comments R neck pain with extension, rotation to R and SB to R hypermobility and angulation noted at upper cervical spine lack of lower cervical R rotation, R lateral flexion and extension noted. Lumbar Spine Range of Motion Lumbar Spine Active Degrees Testing Position Standing Comments WFL thoracic R rotation = 32 degrees with R neck pain and back pain. L rotation= 43 degrees. Shoulder Goniometric Range of Motion Shoulder Right Active Shoulder ROM WFL Yes Left Active Shoulder ROM WFL Yes PT-OP-L Special Tests Start: 12/23/20 09:59 Freq: Status: Active Protocol: Document 12/23/20 10:00 HH (Rec: 12/23/20 10:31 [email or web address]) Special Tests Cervical Spine Special Tests Passive Neck Flexion Test Results no pain Comments stretching sensation at c/s parapsinals. Foraminal Compression Test Results +ve R Spurling's Test Test Results +ve R Comments pain noted at R upper cervical , radiating pain to R shoulder Traction Test Results +ve Comments pain relief noted. PT-OP-M Strength Start: 12/23/20 09:59 Freq: Status: Active Protocol: Document 12/23/20 10:00 HH (Rec: 12/23/20 10:31 [email or web address]) Cervical Spine Strength Cervical Spine Manual Muscle Testing Comments will assess next time Shoulder Strength Shoulder Manual Muscle Testing Right Flexion 5 Normal Extension 5 Normal Abduction (C5) 5 Normal Adduction 5 Normal Left Flexion 5 Normal Extension 5 Normal Abduction (C5) 5 Normal Adduction 5 Normal PT-OP-T Assessment and Plan Start: 12/23/20 09:59 Freq: Status: Active Protocol: Document 12/23/20 10:00 (Rec: 12/23/20 10:31 [email or web address]) Physical Therapy Assessment Rehab Potential Rehabilitation Potential Good Evaluation Complexity Number of Personal Factors/Comorbidities 1-2 Number of Body Systems Impaired 1-2 Clinical Presentation at Evaluation Stable Impairments Impairments Activity Tolerance,Functional Activities,Functional Mobility ,Pain,Posture,ROM,Soft Tissue Mobility,Strength Goals HEP Impairment pt does not ahve a HEP Short Term Goal (STG) pt will comply to HEP independently and safely STG Duration 4 weeks Attenuator Goal (LTG) pt will be able to return to her weekly exercise routine without increase in discomfort LTG Duration 8 weeks activity tolerance Impairment difficulty car checking while driving, carrying her children Short Term Goal (STG) pt will be able to turn her head fully to R side to car check without increase in discomfort STG Duration 4 weeks Attenuator Goal (LTG) pt will be able to carry her 9month old children with proper body mechanics without increase in discomfort LTG Duration 8 weeks pain Impairment pt has frequent 9/10 pain at R scapula Short Term Goal (STG) pt will show improved lower cervical and upper thoracic mobility and strength to have no more than 5/10 pain at R scapula and neck in a daily basis STG Duration 4 weeks Attenuator Goal (LTG) pt will show improved lower cervical and upper thoracic mobility and strength to have no more than 3/10 pain at R scapula and neck in a daily basis LTG Duration 8 weeks quickdash Impairment pt scores 59 on quickdash Short Term Goal (STG) pt will show improved functional UE strength and activity tolerance to score < 40 on quickdash STG Duration 4 weeks Mcfp Goal (LTG) pt will show improved functional UE strength and activity tolerance to score < 20 on quickdash LTG Duration 8 weeks NDI Impairment pt scores 29 on NDI Short Term Goal (STG) pt will show improved c/s mobility and strength to score <20 on NDI STG Duration 4 weeks Attenuator Goal (LTG) pt will show improved overall quality of life to score <10 on NDI LTG Duration 8 weeks Assessment Summary Assessment Abbi is a 35yo female here for her R sided chronic neck pain and radiating R scapular pain since 17 years old. Upon assessment, pt presents signs of cervical radiculopathy who has poor lower cervical and thoracic extension and R rotation. Pt tends to compensate through upper cervical region with any cervical movements which creates excessive mechanical stress at R sided nerve roots. Pt will benefit from skilled therapy to improve her lower cervical and thoracic mobility and strength, and upper cervical stability in order for her complete her daily tasks in pain free. Physical Therapy Plan Frequency and Duration Frequency of Treatment 2x/Week Duration of Treatment 8 weeks Plan of Care Start Date 12/23/20 Plan of Care End Date 02/21/21 Therapeutic Interventions Therapeutic Interventions Aquatic Therapy,Balance Training,Gait Training,Home Exercise Program,Joint Mobilizations,Manual Therapy, Neuromuscular Re-education, Patient/Caregiver Education, Self-Care/Home Management,Soft Tissue Mobilization,Taping, Therapeutic Activities, Therapeutic Exercises Modalities Cold Pack/Ice Massage,Electric Stimulation,Hot Packs, Infrared Therapy,Traction- Mechanical,Ultrasound Next Visit Focus/Plan Next Note Type Treatment Note Next Visit Plan check deep cervical flexor stability, begin open book to R side, R pec STM MWM for lower cervical and thoracic R rotation traction
--- NOTE | 2021-01-01 12:14 | PT.OTN ---
Current Diagnoses Other chronic pain (01/01/21) Pain in right shoulder (01/01/21) Radiculopathy, cervical region (01/01/21) Cervicalgia (01/01/21) Pain in thoracic spine (01/01/21) Physical Therapy Treatment Note PT-OP-A Visit Information Start: 12/23/20 09:59 Freq: Status: Active Protocol: Document 01/01/21 08:14 HH (Rec: 01/01/21 12:14 [id number]) Out-Patient Physical Therapy Visit Information Visit Information Visit Type Treatment Note Visit Start Time 08:15 Visit Stop Time 09:00 Total Visit Minutes 45 Visit Number 2/ Number of JUNIOR COPYWRITER Visits 0 PT-OP-B Current Condition Start: 12/23/20 09:59 Freq: Status: Active Protocol: Document 12/23/20 10:00 HH (Rec: 12/23/20 10:31 HH [email or web address]) Current Condition History of Current Condition Onset Date since 17 years old Current Complaints chronic neck and R sided thoracic pain, difficulty turning her head. History of Current Condition Abbi is a 35yo female here for her R sided chronic neck pain and radiating R scapular pain since 17 years old. She has 9/10 pain between her R scapular and spine which is worse with activity and at the end of the day. She tends to feel better with neck/ head support with pillows, laying down and use of heat pad. She also says she notices some weakness at times and decreased strength in her right UE. She denies any tingling/ numbness. Over the past 6 months, pt has been doing conservative management with chiropractic visit, massage therapy and accupunture but none of them helps. She has a 3 year old, 9 year old and 9 month old so she has to carry them often which triggers her pain a lot. Prior Treatments and Tests Pt had x-ray for C/S, R shoulder and thoracic spine. 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 Robles stated pt will need MRI of her cervical spine if conservative maangement fails. Will consider steroid injection as well. Current Functional Impairments (Reported) Functional Limitations- ADL's difficulty carrying her children difficulty turning her head to R while driving. Functional Limitations- Recreation/ unable to UE strengthening ex. Hobbies PT-OP-C Subjective Start: 12/23/20 09:59 Freq: Status: Active Protocol: Document 01/01/21 08:14 HH (Rec: 01/01/21 12:14 HH [id number]) OP-PT Subjective Patient Comments Patient Comments I was hurting for a week after the evaluation possibly because of those testing. Patient Reported Progress Same PT-OP-F Manual Assessment Start: 12/23/20 09:59 Freq: Status: Active Protocol: Document 12/23/20 10:00 HH (Rec: 12/23/20 10:31 [email or web address]) Manual Assessments Soft Tissue Assessment Soft Tissue Mobility Assessment hypertonicity at R distal levator scapular, R cervical paraspinals Joint Mobility Assessment Joint Mobility Assessment limited lower cervical extension and R rotation and upper thoracic extension and R rotation. PT-OP-H Neuro Start: 12/23/20 09:59 Freq: Status: Active Protocol: Document 12/23/20 10:00 HH (Rec: 12/23/20 10:31 [email or web address]) Sensation Evaluation Gross Sensation Gross Sensation WNL PT-OP-J Posture/Palpation/Skin Start: 12/23/20 09:59 Freq: Status: Active Protocol: Document 12/23/20 10:00 HH (Rec: 12/23/20 10:31 [email or web address]) Posture Evaluation Position Standing Head/C-Spine Posture Forward Head T-Spine Posture Rotation Left Shoulder Posture (R) Rounded Scapula Posture (R) Protracted,(R) Winged Arm Posture (R) Internally Rotated PT-OP-K Range of Motion Start: 12/23/20 09:59 Freq: Status: Active Protocol: Document 12/23/20 10:00 HH (Rec: 12/23/20 10:31 [email or web address]) Cervical Spine Range of Motion Cervical Spine Active Degrees Testing Position Sitting Flexion 55 Extension 50 Rotation Left 85 Rotation Right 72 Lateral Flexion Left 48 Lateral Flexion Right 40 ROM Limitations Soft Tissue Tightness,Bony Restriction,Muscle Weakness, Pain Comments R neck pain with extension, rotation to R and SB to R hypermobility and angulation noted at upper cervical spine lack of lower cervical R rotation, R lateral flexion and extension noted. Lumbar Spine Range of Motion Lumbar Spine Active Degrees Testing Position Standing Comments WFL thoracic R rotation = 32 degrees with R neck pain and back pain. L rotation= 43 degrees. Shoulder Goniometric Range of Motion Shoulder Right Active Shoulder ROM WFL Yes Left Active Shoulder ROM WFL Yes PT-OP-L Special Tests Start: 12/23/20 09:59 Freq: Status: Active Protocol: Document 12/23/20 10:00 HH (Rec: 12/23/20 10:31 [email or web address]) Special Tests Cervical Spine Special Tests Passive Neck Flexion Test Results no pain Comments stretching sensation at c/s parapsinals. Foraminal Compression Test Results +ve R Spurling's Test Test Results +ve R Comments pain noted at R upper cervical , radiating pain to R shoulder Traction Test Results +ve Comments pain relief noted. PT-OP-M Strength Start: 12/23/20 09:59 Freq: Status: Active Protocol: Document 12/23/20 10:00 HH (Rec: 12/23/20 10:31 [email or web address]) Cervical Spine Strength Cervical Spine Manual Muscle Testing Comments will assess next time Shoulder Strength Shoulder Manual Muscle Testing Right Flexion 5 Normal Extension 5 Normal Abduction (C5) 5 Normal Adduction 5 Normal Left Flexion 5 Normal Extension 5 Normal Abduction (C5) 5 Normal Adduction 5 Normal PT-OP-Q Treatments Start: 12/23/20 09:59 Freq: Status: Active Protocol: Document 01/01/21 08:14 HH (Rec: 01/01/21 12:14 [id number]) Therapeutic Exercises Supine Exercises cervical stretches Supine Exercise Name PT assisted, supine, upper trap and levator scap stretch Side bilateral Reps/Minutes 15 sec hold Comments lateral flexion, and rotation chin tuck w rotation Reps/Minutes 5 times Comments for HEP, pulling sensation on R chin tuck Supine Exercise Name with scap retraction. Reps/Minutes 10 sec x 5 Comments for HEP Prone Exercises prayer stretch Comments for HEP Sidelying Exercises open book Reps/Minutes 10 x 2 Comments for HEP, cues on thoracic rotation Manual Therapy Treatment Soft Tissue Mobilization levator scap Mobilization Type Myofascial Release,Sustained Pressure,Trigger Point Release Intensity/Depth Deep Body Position Supine Comments toncity noted at distal levator scap suboccipitals Mobilization Type Myofascial Release,Sustained Pressure,Trigger Point Release Intensity/Depth Deep Body Position Supine Manual Traction c/s Reps/Duration 10 sec hold x8 PT-OP-T Assessment and Plan Start: 12/23/20 09:59 Freq: Status: Active Protocol: Document 01/01/21 08:14 (Rec: 01/01/21 12:14 [id number]) Physical Therapy Assessment Goals HEP Impairment pt does not ahve a HEP Short Term Goal (STG) pt will comply to HEP independently and safely STG Duration 4 weeks Assisted Goal (LTG) pt will be able to return to her weekly exercise routine without increase in discomfort LTG Duration 8 weeks activity tolerance Impairment difficulty car checking while driving, carrying her children Short Term Goal (STG) pt will be able to turn her head fully to R side to car check without increase in discomfort STG Duration 4 weeks Wood Products Manufacturer Goal (LTG) pt will be able to carry her 9month old children with proper body mechanics without increase in discomfort LTG Duration 8 weeks pain Impairment pt has frequent 9/10 pain at R scapula Short Term Goal (STG) pt will show improved lower cervical and upper thoracic mobility and strength to have no more than 5/10 pain at R scapula and neck in a daily basis STG Duration 4 weeks Wood Products Manufacturer Goal (LTG) pt will show improved lower cervical and upper thoracic mobility and strength to have no more than 3/10 pain at R scapula and neck in a daily basis LTG Duration 8 weeks quickdash Impairment pt scores 59 on quickdash Short Term Goal (STG) pt will show improved functional UE strength and activity tolerance to score < 40 on quickdash STG Duration 4 weeks Assisted Goal (LTG) pt will show improved functional UE strength and activity tolerance to score < 20 on quickdash LTG Duration 8 weeks NDI Impairment pt scores 29 on NDI Short Term Goal (STG) pt will show improved c/s mobility and strength to score <20 on NDI STG Duration 4 weeks Wood Products Manufacturer Goal (LTG) pt will show improved overall quality of life to score <10 on NDI LTG Duration 8 weeks Assessment Summary Assessment first tx session today and we focused on increased lower and upper thoracic mobility and upper cervical stability. Pt is very pain sensitive to cervical rotation and extension. Will assess her post session tolerance next visit. Physical Therapy Plan Frequency and Duration Frequency of Treatment 2x/Week Duration of Treatment 8 weeks Plan of Care Start Date 12/23/20 Plan of Care End Date 02/21/21 Therapeutic Interventions Therapeutic Interventions Aquatic Therapy,Balance Training,Gait Training,Home Exercise Program,Joint Mobilizations,Manual Therapy, Neuromuscular Re-education, Patient/Caregiver Education, Self-Care/Home Management,Soft Tissue Mobilization,Taping, Therapeutic Activities, Therapeutic Exercises Modalities Cold Pack/Ice Massage,Electric Stimulation,Hot Packs, Infrared Therapy,Traction- Mechanical,Ultrasound Next Visit Focus/Plan Next Note Type Treatment Note Next Visit Plan check deep cervical flexor stability, begin open book to R side, R pec STM MWM for lower cervical and thoracic R rotation traction
--- NOTE | 2021-01-03 11:31 | PT.OTN ---
Current Diagnoses Other chronic pain (01/03/21) Pain in right shoulder (01/03/21) Radiculopathy, cervical region (01/03/21) Cervicalgia (01/03/21) Pain in thoracic spine (01/03/21) Physical Therapy Treatment Note PT-OP-A Visit Information Start: 12/23/20 09:59 Freq: Status: Active Protocol: Document 01/03/21 08:14 HH (Rec: 01/03/21 09:01 [id number]) Out-Patient Physical Therapy Visit Information Visit Information Visit Type Treatment Note Visit Start Time 08:16 Visit Stop Time 09:00 Total Visit Minutes 44 Visit Number 09/04 Number of CUSTOMER SALES CONSULTANT Visits 0 PT-OP-B Current Condition Start: 12/23/20 09:59 Freq: Status: Active Protocol: Document 12/23/20 10:00 HH (Rec: 12/23/20 10:31 [email or web address]) Current Condition History of Current Condition Onset Date since 17 years old Current Complaints chronic neck and R sided thoracic pain, difficulty turning her head. History of Current Condition Abbi is a 35yo female here for her R sided chronic neck pain and radiating R scapular pain since 17 years old. She has 9/10 pain between her R scapular and spine which is worse with activity and at the end of the day. She tends to feel better with neck/ head support with pillows, laying down and use of heat pad. She also says she notices some weakness at times and decreased strength in her right UE. She denies any tingling/ numbness. Over the past 6 months, pt has been doing conservative management with chiropractic visit, massage therapy and accupunture but none of them helps. She has a 3 year old, 9 year old and 9 month old so she has to carry them often which triggers her pain a lot. Prior Treatments and Tests Pt had x-ray for C/S, R shoulder and thoracic spine. 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 Robles stated pt will need MRI of her cervical spine if conservative maangement fails. Will consider steroid injection as well. Current Functional Impairments (Reported) Functional Limitations- ADL's difficulty carrying her children difficulty turning her head to R while driving. Functional Limitations- Recreation/ unable to UE strengthening ex. Hobbies PT-OP-C Subjective Start: 12/23/20 09:59 Freq: Status: Active Protocol: Document 01/03/21 08:14 HH (Rec: 01/03/21 09:01 [id number]) OP-PT Subjective Patient Comments Patient Comments I Feel pretty good from last time. i felt pretty good leaving her but the symptoms came back shortly PT-OP-F Manual Assessment Start: 12/23/20 09:59 Freq: Status: Active Protocol: Document 12/23/20 10:00 HH (Rec: 12/23/20 10:31 [email or web address]) Manual Assessments Soft Tissue Assessment Soft Tissue Mobility Assessment hypertonicity at R distal levator scapular, R cervical paraspinals Joint Mobility Assessment Joint Mobility Assessment limited lower cervical extension and R rotation and upper thoracic extension and R rotation. PT-OP-H Neuro Start: 12/23/20 09:59 Freq: Status: Active Protocol: Document 12/23/20 10:00 HH (Rec: 12/23/20 10:31 [email or web address]) Sensation Evaluation Gross Sensation Gross Sensation WNL PT-OP-J Posture/Palpation/Skin Start: 12/23/20 09:59 Freq: Status: Active Protocol: Document 12/23/20 10:00 HH (Rec: 12/23/20 10:31 [email or web address]) Posture Evaluation Position Standing Head/C-Spine Posture Forward Head T-Spine Posture Rotation Left Shoulder Posture (R) Rounded Scapula Posture (R) Protracted,(R) Winged Arm Posture (R) Internally Rotated PT-OP-K Range of Motion Start: 12/23/20 09:59 Freq: Status: Active Protocol: Document 12/23/20 10:00 HH (Rec: 12/23/20 10:31 [email or web address]) Cervical Spine Range of Motion Cervical Spine Active Degrees Testing Position Sitting Flexion 55 Extension 50 Rotation Left 85 Rotation Right 72 Lateral Flexion Left 48 Lateral Flexion Right 40 ROM Limitations Soft Tissue Tightness,Bony Restriction,Muscle Weakness, Pain Comments R neck pain with extension, rotation to R and SB to R hypermobility and angulation noted at upper cervical spine lack of lower cervical R rotation, R lateral flexion and extension noted. Lumbar Spine Range of Motion Lumbar Spine Active Degrees Testing Position Standing Comments WFL thoracic R rotation = 32 degrees with R neck pain and back pain. L rotation= 43 degrees. Shoulder Goniometric Range of Motion Shoulder Right Active Shoulder ROM WFL Yes Left Active Shoulder ROM WFL Yes PT-OP-L Special Tests Start: 12/23/20 09:59 Freq: Status: Active Protocol: Document 12/23/20 10:00 HH (Rec: 12/23/20 10:31 [email or web address]) Special Tests Cervical Spine Special Tests Passive Neck Flexion Test Results no pain Comments stretching sensation at c/s parapsinals. Foraminal Compression Test Results +ve R Spurling's Test Test Results +ve R Comments pain noted at R upper cervical , radiating pain to R shoulder Traction Test Results +ve Comments pain relief noted. PT-OP-M Strength Start: 12/23/20 09:59 Freq: Status: Active Protocol: Document 12/23/20 10:00 HH (Rec: 12/23/20 10:31 [email or web address]) Cervical Spine Strength Cervical Spine Manual Muscle Testing Comments will assess next time Shoulder Strength Shoulder Manual Muscle Testing Right Flexion 5 Normal Extension 5 Normal Abduction (C5) 5 Normal Adduction 5 Normal Left Flexion 5 Normal Extension 5 Normal Abduction (C5) 5 Normal Adduction 5 Normal PT-OP-Q Treatments Start: 12/23/20 09:59 Freq: Status: Active Protocol: Document 01/03/21 08:14 HH (Rec: 01/03/21 09:01 [id number]) Therapeutic Exercises Supine Exercises cervical stretches Supine Exercise Name PT assisted, supine, upper trap and levator scap stretch Side bilateral Reps/Minutes 15 sec hold Comments lateral flexion, and rotation chin tuck w rotation Reps/Minutes 5 times Comments for HEP, pulling sensation on R chin tuck Supine Exercise Name with scap retraction. Reps/Minutes 10 sec x 5 Comments for HEP Prone Exercises prayer stretch Comments for HEP Sidelying Exercises open book Reps/Minutes 10 x 2 Comments for HEP, cues on thoracic rotation Manual Therapy Treatment Soft Tissue Mobilization levator scap Mobilization Type Myofascial Release,Sustained Pressure,Trigger Point Release Intensity/Depth Deep Body Position Supine Comments toncity noted at distal levator scap suboccipitals Mobilization Type Myofascial Release,Sustained Pressure,Trigger Point Release Intensity/Depth Deep Body Position Supine Joint Mobilizations MWM Joint T1-T4 Direction R rotation Grade III Body Position Sitting Comments with thoracic rotation to R Manual Traction c/s Reps/Duration 10 sec hold x8 PT-OP-T Assessment and Plan Start: 12/23/20 09:59 Freq: Status: Active Protocol: Document 01/03/21 08:14 (Rec: 01/03/21 09:01 [id number]) Physical Therapy Assessment Goals HEP Impairment pt does not ahve a HEP Short Term Goal (STG) pt will comply to HEP independently and safely STG Duration 4 weeks Half-Way Goal (LTG) pt will be able to return to her weekly exercise routine without increase in discomfort LTG Duration 8 weeks activity tolerance Impairment difficulty car checking while driving, carrying her children Short Term Goal (STG) pt will be able to turn her head fully to R side to car check without increase in discomfort STG Duration 4 weeks Tool Die Maker Goal (LTG) pt will be able to carry her 9month old children with proper body mechanics without increase in discomfort LTG Duration 8 weeks pain Impairment pt has frequent 9/10 pain at R scapula Short Term Goal (STG) pt will show improved lower cervical and upper thoracic mobility and strength to have no more than 5/10 pain at R scapula and neck in a daily basis STG Duration 4 weeks Half-Way Goal (LTG) pt will show improved lower cervical and upper thoracic mobility and strength to have no more than 3/10 pain at R scapula and neck in a daily basis LTG Duration 8 weeks quickdash Impairment pt scores 59 on quickdash Short Term Goal (STG) pt will show improved functional UE strength and activity tolerance to score < 40 on quickdash STG Duration 4 weeks Tool Die Maker Goal (LTG) pt will show improved functional UE strength and activity tolerance to score < 20 on quickdash LTG Duration 8 weeks NDI Impairment pt scores 29 on NDI Short Term Goal (STG) pt will show improved c/s mobility and strength to score <20 on NDI STG Duration 4 weeks Half-Way Goal (LTG) pt will show improved overall quality of life to score <10 on NDI LTG Duration 8 weeks Assessment Summary Assessment pt reports no pain with traction + rotation in seated position. Tx focused primarily on decompression of C/S, manual mob on upper thoracic and lower cervical rotation. Physical Therapy Plan Frequency and Duration Frequency of Treatment 2x/Week Duration of Treatment 8 weeks Plan of Care Start Date 12/23/20 Plan of Care End Date 02/21/21 Therapeutic Interventions Therapeutic Interventions Aquatic Therapy,Balance Training,Gait Training,Home Exercise Program,Joint Mobilizations,Manual Therapy, Neuromuscular Re-education, Patient/Caregiver Education, Self-Care/Home Management,Soft Tissue Mobilization,Taping, Therapeutic Activities, Therapeutic Exercises Modalities Cold Pack/Ice Massage,Electric Stimulation,Hot Packs, Infrared Therapy,Traction- Mechanical,Ultrasound Next Visit Focus/Plan Next Note Type Treatment Note Next Visit Plan check deep cervical flexor stability, begin open book to R side, R pec STM MWM for lower cervical and thoracic R rotation traction
--- NOTE | 2021-01-06 09:24 | PT.OTN ---
Current Diagnoses Other chronic pain (01/06/21) Pain in right shoulder (01/06/21) Radiculopathy, cervical region (01/06/21) Cervicalgia (01/06/21) Pain in thoracic spine (01/06/21) Physical Therapy Treatment Note PT-OP-A Visit Information Start: 12/23/20 09:59 Freq: Status: Active Protocol: Document 01/06/21 08:17 HH (Rec: 01/06/21 09:24 [id number]) Out-Patient Physical Therapy Visit Information Visit Information Visit Type Treatment Note Visit Start Time 08:18 Visit Stop Time 09:11 Total Visit Minutes 53 Visit Number 10/05 Number of GRA[employer] SUPERVISOR Visits 0 PT-OP-B Current Condition Start: 12/23/20 09:59 Freq: Status: Active Protocol: Document 12/23/20 10:00 HH (Rec: 12/23/20 10:31 [email or web address]) Current Condition History of Current Condition Onset Date since 17 years old Current Complaints chronic neck and R sided thoracic pain, difficulty turning her head. History of Current Condition Abbi is a 35yo female here for her R sided chronic neck pain and radiating R scapular pain since 17 years old. She has 9/10 pain between her R scapular and spine which is worse with activity and at the end of the day. She tends to feel better with neck/ head support with pillows, laying down and use of heat pad. She also says she notices some weakness at times and decreased strength in her right UE. She denies any tingling/ numbness. Over the past 6 months, pt has been doing conservative management with chiropractic visit, massage therapy and accupunture but none of them helps. She has a 3 year old, 9 year old and 9 month old so she has to carry them often which triggers her pain a lot. Prior Treatments and Tests Pt had x-ray for C/S, R shoulder and thoracic spine. 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 Robles stated pt will need MRI of her cervical spine if conservative maangement fails. Will consider steroid injection as well. Current Functional Impairments (Reported) Functional Limitations- ADL's difficulty carrying her children difficulty turning her head to R while driving. Functional Limitations- Recreation/ unable to UE strengthening ex. Hobbies PT-OP-C Subjective Start: 12/23/20 09:59 Freq: Status: Active Protocol: Document 01/06/21 08:17 HH (Rec: 01/06/21 09:24 HH [id number]) OP-PT Subjective Patient Comments Patient Comments I was in so much pain since Wednesday and i had to take oxycodone. I notice those days i had to take care of my children tends to be more aggravating to my pain. Patient Reported Progress Worse PT-OP-F Manual Assessment Start: 12/23/20 09:59 Freq: Status: Active Protocol: Document 12/23/20 10:00 HH (Rec: 12/23/20 10:31 [email or web address]) Manual Assessments Soft Tissue Assessment Soft Tissue Mobility Assessment hypertonicity at R distal levator scapular, R cervical paraspinals Joint Mobility Assessment Joint Mobility Assessment limited lower cervical extension and R rotation and upper thoracic extension and R rotation. PT-OP-H Neuro Start: 12/23/20 09:59 Freq: Status: Active Protocol: Document 12/23/20 10:00 HH (Rec: 12/23/20 10:31 [email or web address]) Sensation Evaluation Gross Sensation Gross Sensation WNL PT-OP-J Posture/Palpation/Skin Start: 12/23/20 09:59 Freq: Status: Active Protocol: Document 12/23/20 10:00 HH (Rec: 12/23/20 10:31 [email or web address]) Posture Evaluation Position Standing Head/C-Spine Posture Forward Head T-Spine Posture Rotation Left Shoulder Posture (R) Rounded Scapula Posture (R) Protracted,(R) Winged Arm Posture (R) Internally Rotated PT-OP-K Range of Motion Start: 12/23/20 09:59 Freq: Status: Active Protocol: Document 12/23/20 10:00 HH (Rec: 12/23/20 10:31 [email or web address]) Cervical Spine Range of Motion Cervical Spine Active Degrees Testing Position Sitting Flexion 55 Extension 50 Rotation Left 85 Rotation Right 72 Lateral Flexion Left 48 Lateral Flexion Right 40 ROM Limitations Soft Tissue Tightness,Bony Restriction,Muscle Weakness, Pain Comments R neck pain with extension, rotation to R and SB to R hypermobility and angulation noted at upper cervical spine lack of lower cervical R rotation, R lateral flexion and extension noted. Lumbar Spine Range of Motion Lumbar Spine Active Degrees Testing Position Standing Comments WFL thoracic R rotation = 32 degrees with R neck pain and back pain. L rotation= 43 degrees. Shoulder Goniometric Range of Motion Shoulder Right Active Shoulder ROM WFL Yes Left Active Shoulder ROM WFL Yes PT-OP-L Special Tests Start: 12/23/20 09:59 Freq: Status: Active Protocol: Document 12/23/20 10:00 HH (Rec: 12/23/20 10:31 [email or web address]) Special Tests Cervical Spine Special Tests Passive Neck Flexion Test Results no pain Comments stretching sensation at c/s parapsinals. Foraminal Compression Test Results +ve R Spurling's Test Test Results +ve R Comments pain noted at R upper cervical , radiating pain to R shoulder Traction Test Results +ve Comments pain relief noted. PT-OP-M Strength Start: 12/23/20 09:59 Freq: Status: Active Protocol: Document 12/23/20 10:00 HH (Rec: 12/23/20 10:31 [email or web address]) Cervical Spine Strength Cervical Spine Manual Muscle Testing Comments will assess next time Shoulder Strength Shoulder Manual Muscle Testing Right Flexion 5 Normal Extension 5 Normal Abduction (C5) 5 Normal Adduction 5 Normal Left Flexion 5 Normal Extension 5 Normal Abduction (C5) 5 Normal Adduction 5 Normal PT-OP-Q Treatments Start: 12/23/20 09:59 Freq: Status: Active Protocol: Document 01/06/21 08:17 HH (Rec: 01/06/21 09:24 HH [id number]) Therapeutic Exercises Supine Exercises scap punch Side right Reps/Minutes 5 x 2 Comments for HEP, R scap protraction Sitting Exercises chin tuck w rotation Reps/Minutes 5 times Comments for HEP, no discomfort chin tuck Reps/Minutes 5 sec hold x 5 Comments for HEP, min discomfort at R neck Manual Therapy Treatment Soft Tissue Mobilization subscapularis Body Location R Mobilization Type Myofascial Release,Sustained Pressure,Trigger Point Release Intensity/Depth Deep Body Position Sidelying Comments pt reports referred pain to R occiput levator scap Mobilization Type Myofascial Release,Sustained Pressure,Trigger Point Release Intensity/Depth Deep Body Position Supine Comments toncity noted at distal levator scap suboccipitals Mobilization Type Myofascial Release,Sustained Pressure,Trigger Point Release Intensity/Depth Deep Body Position Supine Joint Mobilizations R scap Direction retraction, protraction Grade III Body Position Sidelying Reps/Duration 3 mins Comments assisted protraction MWM Joint T1-T4 Direction R rotation Grade III Body Position Sitting Comments with thoracic rotation to R Manual Traction c/s Reps/Duration 10 sec hold x8 PT-OP-T Assessment and Plan Start: 12/23/20 09:59 Freq: Status: Active Protocol: Document 01/06/21 08:17 (Rec: 01/06/21 09:24 [id number]) Physical Therapy Assessment Goals HEP Impairment pt does not ahve a HEP Short Term Goal (STG) pt will comply to HEP independently and safely STG Duration 4 weeks Email Operations Manager Goal (LTG) pt will be able to return to her weekly exercise routine without increase in discomfort LTG Duration 8 weeks activity tolerance Impairment difficulty car checking while driving, carrying her children Short Term Goal (STG) pt will be able to turn her head fully to R side to car check without increase in discomfort STG Duration 4 weeks Email Operations Manager Goal (LTG) pt will be able to carry her 9month old children with proper body mechanics without increase in discomfort LTG Duration 8 weeks pain Impairment pt has frequent 9/10 pain at R scapula Short Term Goal (STG) pt will show improved lower cervical and upper thoracic mobility and strength to have no more than 5/10 pain at R scapula and neck in a daily basis STG Duration 4 weeks Email Operations Manager Goal (LTG) pt will show improved lower cervical and upper thoracic mobility and strength to have no more than 3/10 pain at R scapula and neck in a daily basis LTG Duration 8 weeks quickdash Impairment pt scores 59 on quickdash Short Term Goal (STG) pt will show improved functional UE strength and activity tolerance to score < 40 on quickdash STG Duration 4 weeks Snf Goal (LTG) pt will show improved functional UE strength and activity tolerance to score < 20 on quickdash LTG Duration 8 weeks NDI Impairment pt scores 29 on NDI Short Term Goal (STG) pt will show improved c/s mobility and strength to score <20 on NDI STG Duration 4 weeks Email Operations Manager Goal (LTG) pt will show improved overall quality of life to score <10 on NDI LTG Duration 8 weeks Assessment Summary Assessment pt reports aggravated pain since last session possibly after joint mob at T-spine. Reduce intensity today and added R scap stabilization and seated chin tuck w rotation. She samia session well. Physical Therapy Plan Frequency and Duration Frequency of Treatment 2x/Week Duration of Treatment 8 weeks Plan of Care Start Date 12/23/20 Plan of Care End Date 02/21/21 Therapeutic Interventions Therapeutic Interventions Aquatic Therapy,Balance Training,Gait Training,Home Exercise Program,Joint Mobilizations,Manual Therapy, Neuromuscular Re-education, Patient/Caregiver Education, Self-Care/Home Management,Soft Tissue Mobilization,Taping, Therapeutic Activities, Therapeutic Exercises Modalities Cold Pack/Ice Massage,Electric Stimulation,Hot Packs, Infrared Therapy,Traction- Mechanical,Ultrasound Next Visit Focus/Plan Next Note Type Treatment Note Next Visit Plan check deep cervical flexor stability, begin open book to R side, R pec STM MWM for lower cervical and thoracic R rotation traction
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
--- NOTE | 2021-01-13 09:06 | PT.OTN ---
Current Diagnoses Other chronic pain (01/13/21) Pain in right shoulder (01/13/21) Radiculopathy, cervical region (01/13/21) Cervicalgia (01/13/21) Pain in thoracic spine (01/13/21) Physical Therapy Treatment Note PT-OP-A Visit Information Start: 12/23/20 09:59 Freq: Status: Active Protocol: Document 01/13/21 08:15 SP (Rec: 01/13/21 11:42 SP [id number]) Out-Patient Physical Therapy Visit Information Visit Information Visit Type Treatment Note Visit Start Time 08:15 Visit Stop Time 09:06 Total Visit Minutes 51 Visit Number 12/05 Number of BRAID FOLDER Visits 1 Evaluation Information Evaluation Date 12/23/20 PT-OP-B Current Condition Start: 12/23/20 09:59 Freq: Status: Active Protocol: Document 12/23/20 10:00 HH (Rec: 12/23/20 10:31 HH [email or web address]) Current Condition History of Current Condition Onset Date since 17 years old Current Complaints chronic neck and R sided thoracic pain, difficulty turning her head. History of Current Condition Abbi is a 35yo female here for her R sided chronic neck pain and radiating R scapular pain since 17 years old. She has 9/10 pain between her R scapular and spine which is worse with activity and at the end of the day. She tends to feel better with neck/ head support with pillows, laying down and use of heat pad. She also says she notices some weakness at times and decreased strength in her right UE. She denies any tingling/ numbness. Over the past 6 months, pt has been doing conservative management with chiropractic visit, massage therapy and accupunture but none of them helps. She has a 3 year old, 9 year old and 9 month old so she has to carry them often which triggers her pain a lot. Prior Treatments and Tests Pt had x-ray for C/S, R shoulder and thoracic spine. 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 Robles stated pt will need MRI of her cervical spine if conservative maangement fails. Will consider steroid injection as well. Current Functional Impairments (Reported) Functional Limitations- ADL's difficulty carrying her children difficulty turning her head to R while driving. Functional Limitations- Recreation/ unable to UE strengthening ex. Hobbies PT-OP-C Subjective Start: 12/23/20 09:59 Freq: Status: Active Protocol: Document 01/13/21 08:15 SP (Rec: 01/13/21 11:42 SP [id number]) OP-PT Subjective Patient Comments Patient Comments I continue to have the chronic pain R>L deep to mid back about bottom shoulder blade. I ask my for deep massage he helps but caustious of amt pressure is safe. I am still breast feeding my 2nd child almost 1 yr now and not sure want to stop but does note to hurt due to positional. Has noted that when aware of my postural alignment the back tension and pain if not to bad decreases but always feel like need to pop by back to feel better and it doesn't. I don't see my chiropractor anymore and don't feel a big need but want pain to go away so I can get back to working out and get stronger. PT-OP-F Manual Assessment Start: 12/23/20 09:59 Freq: Status: Active Protocol: Document 12/23/20 10:00 HH (Rec: 12/23/20 10:31 HH [email or web address]) Manual Assessments Soft Tissue Assessment Soft Tissue Mobility Assessment hypertonicity at R distal levator scapular, R cervical paraspinals Joint Mobility Assessment Joint Mobility Assessment limited lower cervical extension and R rotation and upper thoracic extension and R rotation. PT-OP-H Neuro Start: 12/23/20 09:59 Freq: Status: Active Protocol: Document 12/23/20 10:00 HH (Rec: 12/23/20 10:31 [email or web address]) Sensation Evaluation Gross Sensation Gross Sensation WNL PT-OP-J Posture/Palpation/Skin Start: 12/23/20 09:59 Freq: Status: Active Protocol: Document 12/23/20 10:00 HH (Rec: 12/23/20 10:31 HH [email or web address]) Posture Evaluation Position Standing Head/C-Spine Posture Forward Head T-Spine Posture Rotation Left Shoulder Posture (R) Rounded Scapula Posture (R) Protracted,(R) Winged Arm Posture (R) Internally Rotated PT-OP-K Range of Motion Start: 12/23/20 09:59 Freq: Status: Active Protocol: Document 12/23/20 10:00 HH (Rec: 12/23/20 10:31 [email or web address]) Cervical Spine Range of Motion Cervical Spine Active Degrees Testing Position Sitting Flexion 55 Extension 50 Rotation Left 85 Rotation Right 72 Lateral Flexion Left 48 Lateral Flexion Right 40 ROM Limitations Soft Tissue Tightness,Bony Restriction,Muscle Weakness, Pain Comments R neck pain with extension, rotation to R and SB to R hypermobility and angulation noted at upper cervical spine lack of lower cervical R rotation, R lateral flexion and extension noted. Lumbar Spine Range of Motion Lumbar Spine Active Degrees Testing Position Standing Comments WFL thoracic R rotation = 32 degrees with R neck pain and back pain. L rotation= 43 degrees. Shoulder Goniometric Range of Motion Shoulder Right Active Shoulder ROM WFL Yes Left Active Shoulder ROM WFL Yes PT-OP-L Special Tests Start: 12/23/20 09:59 Freq: Status: Active Protocol: Document 12/23/20 10:00 (Rec: 12/23/20 10:31 [email or web address]) Special Tests Cervical Spine Special Tests Passive Neck Flexion Test Results no pain Comments stretching sensation at c/s parapsinals. Foraminal Compression Test Results +ve R Spurling's Test Test Results +ve R Comments pain noted at R upper cervical , radiating pain to R shoulder Traction Test Results +ve Comments pain relief noted. PT-OP-M Strength Start: 12/23/20 09:59 Freq: Status: Active Protocol: Document 12/23/20 10:00 (Rec: 12/23/20 10:31 [email or web address]) Cervical Spine Strength Cervical Spine Manual Muscle Testing Comments will assess next time Shoulder Strength Shoulder Manual Muscle Testing Right Flexion 5 Normal Extension 5 Normal Abduction (C5) 5 Normal Adduction 5 Normal Left Flexion 5 Normal Extension 5 Normal Abduction (C5) 5 Normal Adduction 5 Normal PT-OP-Q Treatments Start: 12/23/20 09:59 Freq: Status: Active Protocol: Document 01/13/21 08:15 SP (Rec: 01/13/21 11:42 SP [id number]) Therapeutic Exercises Supine Exercises scap punch Supine Exercise Name reviewed HEP Side right Resistance #2 DB Reps/Minutes 5 x 2 Comments R scap protraction with serratus neutral scap positioning- painfree today Prone Exercises scap puch up Prone Exercise Name modified to plank on knees Resistance added to HEP Reps/Minutes 10 x3- stated has been doing plank off side off table Comments cued PPT, chest lift w/ serratus press (not wing), think elongation trunk Sidelying Exercises open book Sidelying Exercise Name reviewed HEP Resistance AROM- discussed if no pain can add #1 DB Reps/Minutes 10 x 2 Comments cues on thoracic rotation, scap stap depression awareness , dec UT recruit Sitting Exercises chin tuck w rotation Sitting Exercise Name cervical rotation- reviewed HEP, no discomfort Reps/Minutes 5 times Comments used theracane MWM to post neck then scap musculature chin tuck Sitting Exercise Name for HEP, no discomfort Reps/Minutes 5 sec hold x 5 Comments reviewed w/ seated then carryover to plank on elbows Standing Exercises self STMs Standing Exercise Name added to HEP for self pain relief Equipment Used theracane CS & TS, racquetball on wall Comments MWM chin nod/turn, scap mob small range- good feedback responses Manual Therapy Treatment Soft Tissue Mobilization more STMs Body Location infraspinatus, LT, rhomboid, serratus anterior, Distal pec, ES, multifidus Mobilization Type Myofascial Release,Strumming, Trigger Point Release,Other Intensity/Depth Moderate Body Position Sidelying Comments R mid thoracic and cervical musculature levator scap Body Location lev scap, UT, mid trap, SCM Mobilization Type Myofascial Release,Sustained Pressure,Trigger Point Release Intensity/Depth Moderate Body Position Sidelying Comments toncity noted at distal attachments to scapula, clavical suboccipitals Mobilization Type Myofascial Release,Sustained Pressure,Trigger Point Release Intensity/Depth Moderate Body Position Sidelying Joint Mobilizations R scap Joint PNF Direction retraction, depression, up/ downward rotation Grade II Body Position Sidelying Comments PROM, AAROM MWM Joint T2-T10 Direction PA Grade II Body Position Prone Comments WMW with breath Self-Care/Home Management Treatment Education Patient Education Body Mechanics,Home Exercise Program,Joint Protection,Pain Management,Posture Other Education Extra time ed provided for awareness of flexibilty she has that can perform ROM HEP and MWM STMs ball wall, theracane S stick has for pain relief but that the strengthening scapular complex and core stabilization awareness is a big factor in alignment for pain relief, she notices self pec stretch. Good understanding need find balance and why just stretching isn't long lasting . She verbalized understanding and how important the strengthening HEP as tolerated when can is walsh to pain relief. BRAID FOLDER suggested there is dry needling modality that in [place] DO in [facility] is available but understand strengthening is and moving opposite of postural positioning taking care of her 2 little children. Activities Self-Care/Home Management Activities Education discussion only time for that children sleeping with her might also play part in lack sleep comfort not able to move as easy positoning. Verbalized understanding but has been a habit for long time unsure can/ willing to change . Next tx will assess use of pillows for postural alignment sleep positioning. If safe with both kids in bed with them. PT-OP-T Assessment and Plan Start: 12/23/20 09:59 Freq: Status: Active Protocol: Document 01/13/21 08:15 SP (Rec: 01/13/21 11:42 SP [id number]) Physical Therapy Assessment Goals HEP Impairment pt does not ahve a HEP Short Term Goal (STG) pt will comply to HEP independently and safely STG Duration 4 weeks Line Driver Goal (LTG) pt will be able to return to her weekly exercise routine without increase in discomfort LTG Duration 8 weeks activity tolerance Impairment difficulty car checking while driving, carrying her children Short Term Goal (STG) pt will be able to turn her head fully to R side to car check without increase in discomfort STG Duration 4 weeks Mcc Goal (LTG) pt will be able to carry her 9month old children with proper body mechanics without increase in discomfort LTG Duration 8 weeks pain Impairment pt has frequent 9/10 pain at R scapula Short Term Goal (STG) pt will show improved lower cervical and upper thoracic mobility and strength to have no more than 5/10 pain at R scapula and neck in a daily basis STG Duration 4 weeks Mcc Goal (LTG) pt will show improved lower cervical and upper thoracic mobility and strength to have no more than 3/10 pain at R scapula and neck in a daily basis LTG Duration 8 weeks quickdash Impairment pt scores 59 on quickdash Short Term Goal (STG) pt will show improved functional UE strength and activity tolerance to score < 40 on quickdash STG Duration 4 weeks Line Driver Goal (LTG) pt will show improved functional UE strength and activity tolerance to score < 20 on quickdash LTG Duration 8 weeks NDI Impairment pt scores 29 on NDI Short Term Goal (STG) pt will show improved c/s mobility and strength to score <20 on NDI STG Duration 4 weeks Mcc Goal (LTG) pt will show improved overall quality of life to score <10 on NDI LTG Duration 8 weeks Assessment Summary Assessment Pt responded well to manual and core, scap stab strengthening ther ex today w/ almost painfree and good muscle work feeling. Will continue progress CS ROM/ alignment activities with support of core, scap complex stabilization. Physical Therapy Plan Frequency and Duration Frequency of Treatment 2x/Week Duration of Treatment 8 weeks Plan of Care Start Date 12/23/20 Plan of Care End Date 02/21/21 Therapeutic Interventions Therapeutic Interventions Aquatic Therapy,Balance Training,Gait Training,Home Exercise Program,Joint Mobilizations,Manual Therapy, Neuromuscular Re-education, Patient/Caregiver Education, Self-Care/Home Management,Soft Tissue Mobilization,Taping, Therapeutic Activities, Therapeutic Exercises Modalities Cold Pack/Ice Massage,Electric Stimulation,Hot Packs, Infrared Therapy,Traction- Mechanical,Ultrasound Next Visit Focus/Plan Next Note Type Treatment Note Next Visit Plan Next visit: review PT's previous tx recommendation: pt asked about CBD oil for pain management last time. I provided some information to her today regarding it's function of facilitation of muscle relaxation and reduce pain. I also recommended her to acquire neck strap traction unit for pain relief Next tx: recheck plank, CS & TS MWM using theracane/ ball wall self STMs, review scap HEP, core stabilization to decrease mid thoracic pain. POC: check deep cervical deep neck flexor stability, open book to R side, R pec STM ball wall or self opp arms fingers MWM and MWM for lower cervical and thoracic R rotation traction theracane/ ball wall.
--- NOTE | 2021-01-16 14:05 | PT.OTN ---
Current Diagnoses Other chronic pain (01/16/21) Pain in right shoulder (01/16/21) Radiculopathy, cervical region (01/16/21) Cervicalgia (01/16/21) Pain in thoracic spine (01/16/21) Physical Therapy Treatment Note PT-OP-A Visit Information Start: 12/23/20 09:59 Freq: Status: Active Protocol: Document 01/16/21 11:15 [facility] (Rec: 01/16/21 14:05 AMH [email or web address]) Out-Patient Physical Therapy Visit Information Visit Information Visit Type Treatment Note Visit Start Time 11:15 Visit Stop Time 12:00 Total Visit Minutes 45 Visit Number 01/04 PT-OP-B Current Condition Start: 12/23/20 09:59 Freq: Status: Active Protocol: Document 12/23/20 10:00 HH (Rec: 12/23/20 10:31 HH [email or web address]) Current Condition History of Current Condition Onset Date since 17 years old Current Complaints chronic neck and R sided thoracic pain, difficulty turning her head. History of Current Condition Abbi is a 35yo female here for her R sided chronic neck pain and radiating R scapular pain since 17 years old. She has 9/10 pain between her R scapular and spine which is worse with activity and at the end of the day. She tends to feel better with neck/ head support with pillows, laying down and use of heat pad. She also says she notices some weakness at times and decreased strength in her right UE. She denies any tingling/ numbness. Over the past 6 months, pt has been doing conservative management with chiropractic visit, massage therapy and accupunture but none of them helps. She has a 3 year old, 9 year old and 9 month old so she has to carry them often which triggers her pain a lot. Prior Treatments and Tests Pt had x-ray for C/S, R shoulder and thoracic spine. 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 Robles stated pt will need MRI of her cervical spine if conservative maangement fails. Will consider steroid injection as well. Current Functional Impairments (Reported) Functional Limitations- ADL's difficulty carrying her children difficulty turning her head to R while driving. Functional Limitations- Recreation/ unable to UE strengthening ex. Hobbies PT-OP-C Subjective Start: 12/23/20 09:59 Freq: Status: Active Protocol: Document 01/16/21 11:22 AM[facility] (Rec: 01/16/21 11:32 AMH [id number]) OP-PT Subjective Patient Comments Patient Comments till really feeling the medial border of her scapula, holding her baby really seems to have aggravated her symptoms. She reports the only thing tht really helps is when her puts his elbow into her back PT-OP-F Manual Assessment Start: 12/23/20 09:59 Freq: Status: Active Protocol: Document 12/23/20 10:00 HH (Rec: 12/23/20 10:31 [email or web address]) Manual Assessments Soft Tissue Assessment Soft Tissue Mobility Assessment hypertonicity at R distal levator scapular, R cervical paraspinals Joint Mobility Assessment Joint Mobility Assessment limited lower cervical extension and R rotation and upper thoracic extension and R rotation. PT-OP-H Neuro Start: 12/23/20 09:59 Freq: Status: Active Protocol: Document 12/23/20 10:00 HH (Rec: 12/23/20 10:31 [email or web address]) Sensation Evaluation Gross Sensation Gross Sensation WNL PT-OP-J Posture/Palpation/Skin Start: 12/23/20 09:59 Freq: Status: Active Protocol: Document 12/23/20 10:00 HH (Rec: 12/23/20 10:31 [email or web address]) Posture Evaluation Position Standing Head/C-Spine Posture Forward Head T-Spine Posture Rotation Left Shoulder Posture (R) Rounded Scapula Posture (R) Protracted,(R) Winged Arm Posture (R) Internally Rotated PT-OP-K Range of Motion Start: 12/23/20 09:59 Freq: Status: Active Protocol: Document 12/23/20 10:00 HH (Rec: 12/23/20 10:31 [email or web address]) Cervical Spine Range of Motion Cervical Spine Active Degrees Testing Position Sitting Flexion 55 Extension 50 Rotation Left 85 Rotation Right 72 Lateral Flexion Left 48 Lateral Flexion Right 40 ROM Limitations Soft Tissue Tightness,Bony Restriction,Muscle Weakness, Pain Comments R neck pain with extension, rotation to R and SB to R hypermobility and angulation noted at upper cervical spine lack of lower cervical R rotation, R lateral flexion and extension noted. Lumbar Spine Range of Motion Lumbar Spine Active Degrees Testing Position Standing Comments WFL thoracic R rotation = 32 degrees with R neck pain and back pain. L rotation= 43 degrees. Shoulder Goniometric Range of Motion Shoulder Right Active Shoulder ROM WFL Yes Left Active Shoulder ROM WFL Yes PT-OP-L Special Tests Start: 12/23/20 09:59 Freq: Status: Active Protocol: Document 12/23/20 10:00 HH (Rec: 12/23/20 10:31 HH [email or web address]) Special Tests Cervical Spine Special Tests Passive Neck Flexion Test Results no pain Comments stretching sensation at c/s parapsinals. Foraminal Compression Test Results +ve R Spurling's Test Test Results +ve R Comments pain noted at R upper cervical , radiating pain to R shoulder Traction Test Results +ve Comments pain relief noted. PT-OP-M Strength Start: 12/23/20 09:59 Freq: Status: Active Protocol: Document 12/23/20 10:00 HH (Rec: 12/23/20 10:31 HH [email or web address]) Cervical Spine Strength Cervical Spine Manual Muscle Testing Comments will assess next time Shoulder Strength Shoulder Manual Muscle Testing Right Flexion 5 Normal Extension 5 Normal Abduction (C5) 5 Normal Adduction 5 Normal Left Flexion 5 Normal Extension 5 Normal Abduction (C5) 5 Normal Adduction 5 Normal PT-OP-Q Treatments Start: 12/23/20 09:59 Freq: Status: Active Protocol: Document 01/16/21 11:15 AM[facility] (Rec: 01/16/21 14:05 AMH [email or web address]) Therapeutic Exercises Supine Exercises foam roll stretch Reps/Minutes 4 min Comments arms at side with palms up, pt tolerated well Prone Exercises prayer stretch Reps/Minutes 60 sec holds each Comments arms forward and then to each side Other Exercises thoracic mobilization in quadruped Other Exercise Name quadruped rock backs with self throacic mobilization Comments forearms on the floor hands together, lift hands as you rock back to mobili Manual Therapy Treatment Joint Mobilizations prone thoracic mobilization Joint Thoracic spine Grade III Body Position Prone Manual Techniques sidelying scapula mobilization R side Body Position Sidelying Comments good tolerance PT-OP-T Assessment and Plan Start: 12/23/20 09:59 Freq: Status: Active Protocol: Document 01/16/21 11:15 AM[facility] (Rec: 01/16/21 14:05 AMH [email or web address]) Physical Therapy Assessment Assessment Summary Assessment pt notes she is still very painful in her mid back but that her neck seems to be better. She reports the pain is very intense and she has asked her doctor for pain medicine. I did try to mobilize her thoracic spine and worked on sidelying scapular mobs. She is really tight in her pec minor on the right. I gave her a foam roll stretch for home and added in some self mobilization exercises in quadruped. Pt also notes she has responded well to cervical manual traction. Maybe consider a home traction rental unit Physical Therapy Plan Frequency and Duration Frequency of Treatment 2x/Week Duration of Treatment 8 weeks Plan of Care Start Date 12/23/20 Plan of Care End Date 02/21/21 Therapeutic Interventions Therapeutic Interventions Aquatic Therapy,Balance Training,Gait Training,Home Exercise Program,Joint Mobilizations,Manual Therapy, Neuromuscular Re-education, Patient/Caregiver Education, Self-Care/Home Management,Soft Tissue Mobilization,Taping, Therapeutic Activities, Therapeutic Exercises Modalities Cold Pack/Ice Massage,Electric Stimulation,Hot Packs, Infrared Therapy,Traction- Mechanical,Ultrasound Next Visit Focus/Plan Next Note Type Treatment Note Next Visit Plan review new stretches and mobilization next visit, possible trial of mechanical traction with home rental unit . Pt to talk to MD regarding pain control
--- NOTE | 2021-03-05 14:13 | PT.OPDS ---
Current Diagnoses Other chronic pain (01/16/21) Pain in right shoulder (01/16/21) Radiculopathy, cervical region (01/16/21) Cervicalgia (01/16/21) Pain in thoracic spine (01/16/21) Visit Care Team Role Provider Type Jose Robles MD Attending Provider Physician Family Provider Primary Care Provider Referring Provider Specialty: Family Practice Address: [address] [place] [address], [facility] Email: [email or web address] Visit Number Visit Number 01/04 Discharge Summary PT-OP-T Assessment and Plan Start: 12/23/20 09:59 Freq: Status: Active Protocol: Document 03/05/21 14:13 (Rec: 03/05/21 14:13 [email or web address]) Physical Therapy Plan Discharge Physical Therapy Discharge Reasons No Longer Attending PT Discharge Comments pt no show once and cancelled all her appts. She is no longer attending PT at this point. DC from PT
== END 2021-03-05 16:27 | disposition home or self-care (01) ==
LOC: PHYS 11:15
PROVIDERS: Family Provider Family Medicine; PCP Family Medicine; Referring Provider Family Medicine; Visit Provider Family Medicine
DX: M54.2 Cervicalgia (principal); M54.12 Radiculopathy, cervical region; M25.511 Pain in right shoulder; G89.29 Other chronic pain; M54.6 Pain in thoracic spine
CPT/HCPCS: 97110; 97140; 97161; 97535

== ENCOUNTER → 2021-01-17 13:36 | Outpatient (CLI) | payer OTHER, MEDICAID, SELFPAY | PROVIDERS: Family Provider Family Medicine; PCP Family Medicine; Referring Provider Physician Assistant; Visit Provider Physician Assistant | DX: N34.3 Urethral syndrome, unspecified (principal); R30.0 Dysuria | CPT/HCPCS: 81002; 87077; 87086; 87186 ==

== ENCOUNTER → 2021-01-24 10:35 | Outpatient (CLI) | payer OTHER, MEDICAID, SELFPAY ==
[2021-01-24 14:25] LABS: HCG Quantitative /Beta subunit 88936 mIU/mL
== END ==
PROVIDERS: Family Provider Family Medicine; PCP Family Medicine; Referring Provider Family Medicine; Visit Provider Family Medicine
DX: Z34.90 Encounter for supervision of normal pregnancy, unspecified, unspecified trimester (principal)
CPT/HCPCS: 36415; 84702

== ENCOUNTER → 2021-01-27 12:45 | Outpatient (CLI) | payer OTHER, MEDICAID, SELFPAY ==
[2021-01-27 15:13] LABS: HCG Quantitative /Beta subunit 140630 mIU/mL
== END ==
PROVIDERS: Family Provider Family Medicine; PCP Family Medicine; Referring Provider Family Medicine; Visit Provider Family Medicine
DX: Z34.90 Encounter for supervision of normal pregnancy, unspecified, unspecified trimester (principal)
CPT/HCPCS: 36415; 84702

== ENCOUNTER 2021-02-16 09:55 | Emergency (ER) | payer OTHER, MEDICAID, SELFPAY ==
[2021-02-16 10:16] VITALS: BP 135/75; PULSE 88; RESP 18; TEMP 37.2; O2SAT 99; BMI 20.2
--- NOTE | 2021-02-16 10:21 | PC.NURSE ---
In addition to details in triage note: Pt reports possible swollen lymph node in LLQ; there is a palpable lump present, painful to touch. No known hernias. She was also recently diagnosed with a UTI, for which she did not take abx because the s/s resolved on their own. But now feels L flank pain and reports pungent urine smell. 10wks . HCG approp in recent blood work. No US yet this . Reports similar early bleeding and cramping in previous which was a uterine bruise but was healthy and carried to term for live . VSS.
--- NOTE | 2021-02-16 10:46 | DI.US.S_ITS ---
PROCEDURE: US OB <= 14 WEEKS FETUS INDICATIONS: LEFT PELVIC PAIN OUTSIDE/PRIOR DATING DATA: Last menstrual period (LMP): Unknown. LMP-based estimated date of delivery (LATONIA): Not applicable. First dating scan (date and location): 02/16/2021, [facility]. Estimated date of delivery (LATONIA) from first dating scan: 09/16/2021. TECHNIQUE: Real-time scanning was performed of the fetus and maternal pelvic organs, with image documentation. Endovaginal scanning was also performed to better visualize the fetus and maternal ovaries. COMPARISON: None from this FINDINGS: Embryo: A single live intrauterine is seen. The measured heart rate is 165 beats per minute. The crown-rump length measures 2.9 cm, corresponding to an estimated gestational age of 9 weeks 5 days. A yolk sac can be seen. It is too early for detailed anatomic assessment. By visual inspection, the amount of amniotic fluid is within normal limits. No significant findings of subchorionic/perigestational hemorrhage are seen. Measurement variability in dating: +/- 4 weeks by LMP, +/- 7 days by mean sac diameter (use before 6 weeks gestation if crown-rump length not able to be measured), +/- 5 days by crown-rump length (up to 8 weeks 6 days gestation), +/- 7 days by crown-rump length (up to 13 weeks 6 days gestation). Maternal organs: There is a probable right ovarian corpus luteum. The left ovary is not well seen. Prominent bilateral adnexal veins can be seen. Please consider adnexal varices. IMPRESSION: A single live intrauterine is seen. Close clinical followup, with serial beta-hCG and serial ultrasound are recommended, if clinically appropriate. 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 Dictated by: Betito Navas M.D. on 02/16/2021 at 10:55 Approved by: Betito Navas M.D. on 02/16/2021 at 10:57
[2021-02-16 10:56] LABS: Add Manual Diff / Slide Review NO; Basophils Absolute Auto 0 /uL (0-100); Basophils Percent Auto 0.4 % (0-2); Eosinophils Absolute Auto 100 /uL (0-450); Eosinophils Percent Auto 1.2 % (2-4); Hematocrit 39.8 % (36-46); Hemoglobin 13.4 g/dL (12.0-16.0); Lymphocytes Absolute Auto 1600 /uL (1100-4500); Lymphocytes Percent Auto 17.8 % (25-40); Mean Corpuscular HGB Conc 33.6 % (30-36); Mean Corpuscular Hemoglobin 28.9 PG (26-34); Mean Corpuscular Volume 86.1 fL (80-100); Monocytes Absolute Auto 500 /uL (0-900); Monocytes Percent Auto 6.2 % (3-14); Neutrophils Absolute Auto 6600 /uL (1500-7000); Neutrophils Percent Auto 74.4 % (50-75); Platelet Count 251 X10^3/uL (150-400); Red Blood Cell Count 4.62 X10^6/uL (4.0-5.2); Red Cell Distribution Width 12.7 % (11.6-14.8); White Blood Cell Count 8.8 X10^3/uL (4.5-11.0)
[2021-02-16 11:02] LABS: Alanine Aminotransferase 18 IU/L (<35); Albumin 4.3 g/dL (3.5-5.0); Albumin Globulin Ratio 1.9 (1.0-2.8); Alkaline Phosphatase 52 U/L (38-126); Aspartate Aminotransferase 22 IU/L (14-36); BUN Creatinine Ratio 17.4 (6-22); Bilirubin Total 1.5 mg/dL (0.2-1.3); Blood Urea Nitrogen 8 mg/dL (7-17); Calcium 9.3 mg/dL (8.4-10.2); Carbon Dioxide 23 mmol/L (22-32); Chloride 108 mmol/L (98-107); Estimated Glomerular Filt Rate > 60.0 mL/min (>60); Globulin 2.3 g/dL (1.7-4.1); Glucose 94 mg/dL (70-100); HEMOLYSIS < 15 (0-50); Potassium 3.8 mmol/L (3.4-5.1); Sodium 137 mmol/L (137-145); Total Protein 6.6 g/dL (6.3-8.2)
--- NOTE | 2021-02-16 11:41 | DI.US.S_ITS ---
PROCEDURE: US RENAL COMPLETE INDICATIONS: LEFT FLANK PAIN TECHNIQUE: Real-time scanning was performed of the kidneys and bladder, with image documentation. COMPARISON: [facility], US, US OB <= 14 WEEKS FETUS, 02/16/2021, 11:04. FINDINGS: Kidneys: Kidneys are normal in size. Right kidney measures 9.5 cm long; left kidney measures 9.6 cm long. Right renal cortical thickness is 1 cm; left renal cortical thickness is 1.8 cm. Renal cortical echotexture is normal. No hydronephrosis or nephrolithiasis. No suspicious solid mass lesions. The kidneys demonstrate generalized increased vascularity. Bladder: Pre-void bladder volume is 14 mL. Post-void residual was not measured. Pre-void images demonstrate no intraluminal masses or stones. On pre-void images, neither of the ureteral jets are noted with color Doppler interrogation. (Of note, ureteral jets may not be detectable in up to 25% of cases due to insufficient differences in specific gravity between ureteral and bladder urine). Miscellaneous: No free pelvic fluid. There is a simple cyst seen involving the right liver that measures up to 7 mm. IMPRESSION: Abnormally increased vascularity of the kidneys. Please consider nephritis. No hydronephrosis is seen. Dictated by: Betito Navas M.D. on 02/16/2021 at 11:02 Approved by: Betito Navas M.D. on 02/16/2021 at 11:03
--- NOTE | 2021-02-16 11:41 | ED.ABDPAIN ---
HPI - Abdominal Pain General Chief Complaint: Abdominal Pain Stated Complaint: stomach pain left side Time Seen by Provider: 02/16/21 10:48 Source: patient Mode of arrival: Ambulatory Limitations: no limitations History of Present Illness HPI narrative: Patient is a 36-year-old female presenting today with left flank pain ongoing for last 2 days. She says it has been off and on. She has been nauseous her whole she denies having any worsening nausea. No fever or chills. She was treated for a UTI few weeks ago. She denies any painful or frequent urination. She is feeling like she has some all left lower quadrant swelling as well. Pain somewhat radiates around from her flank to her abdomen. She denies any vaginal bleeding Related Data Previous Rx's Medication Instructions Recorded nitrofurantoin 100 mg PO BID 7 Days #14 cap 02/16/21 monohydrate/macrocrystals 100 mg capsule (Macrobid) Allergies Allergy/AdvReac Type Severity Reaction Status Date / Time No Known Drug Allergies Allergy Verified 02/11/21 14:14 Review of Systems Review of Systems Narrative: GENERAL: Denies chills, fatigue, malaise, fever, sweats, travel HEENT: Denies sinus pain, ear pain, sore throat, difficulty swallowing, neck pain RESPIRATORY: Denies dyspnea, cough, wheezing, hemoptysis, sputum. CARDIOVASCULAR: Denies chest pain, palpitations, orthopnea, edema GASTROINTESTINAL: Denies nausea, vomiting, abdominal pain, diarrhea, constipation, melena. : See HPI MUSCULOSKELETAL: Denies weakness, joint pain, or bony pain SKIN: No rash, no erythema, no pruritus NEUROLOGIC: Denies weakness, dizziness, headache, numbness, change in speech, confusion PSYCHIATRIC: No concerning psychosocial issues. 12 point review of systems is negative except for those stated above and HPI Patient History Medical History Anxiety (~2005) Chicken pox (~1985) Chronic back pain (~1999) Dysuria Shingles Surgical History History of section History of dilation and curettage Social History marital status: household members: spouse and children Smoking Status: Never smoker alcohol intake: current substance use type: does not use Smoking Status: Never smoker alcohol intake frequency: other Substance Use Type: does not use Exam Initial Vital Signs Initial Vital Signs: Vital Signs Temperature 98.9 F 02/16/21 10:16 Pulse Rate 88 02/16/21 10:16 Respiratory Rate 18 02/16/21 10:16 Blood Pressure 135/75 02/16/21 10:16 Pulse Oximetry 99 02/16/21 10:16 GENERAL: Alert well-appearing 36-year-old female HEENT: Head atraumatic,EOMI, pupils reactive, face symmetric, moist mucous membranes CARDIOVASCULAR: Regular rate and rhythm without murmurs, rubs or gallops. RESPIRATORY: Breath sounds equal bilaterally, no wheezes rales or rhonchi. ABDOMEN: Soft, nontender. Normoactive bowel sounds all 4 quadrants. No guarding or rebound. : Mild left CVA tenderness EXTREMITIES: Normal range of motion, no clubbing or edema. Neurovascularly intact NEUROLOGICAL: Alert and oriented x4.Normal gait and speech. SKIN: Warm, dry, no laceration, no petechiae, no rashes or lesions. Course Orders Ordered: ED Orders 02/16/21 10:40 Complete Blood Count AUTO DIFF Stat Comprehensive Metabolic Panel Stat HCG Quantitative /Beta subunit Stat 02/16/21 10:46 US OB <= 14 weeks fetus Stat 02/16/21 11:41 US renal complete Stat Vital Signs Vital signs: Vital Signs - 8 hr 02/16/21 12:30 Pulse Rate 88 Respiratory Rate 18 Blood Pressure 93/61 Pulse Oximetry 98 MDM - Abdominal Pain Lab Data Result diagrams: 02/16/21 10:40 02/16/21 10:40 Labs: Lab Results 02/16/21 02/16/21 Range/Units 10:40 10:40 WBC 8.8 (4.5-11.0) X10^3/uL RBC 4.62 (4.0-5.2) X10^6/uL Hgb 13.4 (12.0-16.0) g/dL Hct 39.8 (36-46) % MCV 86.1 (80-100) fL MCH 28.9 (26-34) PG MCHC 33.6 (30-36) % RDW 12.7 (11.6-14.8) % Plt Count 251 (150-400) X10^3/uL Neut % (Auto) 74.4 (50-75) % Lymph % (Auto) 17.8 L (25-40) % Pratt % (Auto) 6.2 (3-14) % Eos % (Auto) 1.2 L (2-4) % Baso % (Auto) 0.4 (0-2) % Neut # (Auto) 6600 (3596-6074) /uL Lymph # (Auto) 1600 (7485-4072) /uL Pratt # (Auto) 500 (0-900) /uL Eos # (Auto) 100 (0-450) /uL Baso # (Auto) 0 (0-100) /uL Sodium 137 (137-145) mmol/L Potassium 3.8 (3.4-5.1) mmol/L Chloride 108 H (98-107) mmol/L Carbon Dioxide 23 (22-32) mmol/L BUN 8 (7-17) mg/dL Creatinine 0.46 L (0.52-1.04) mg/dL Estimated GFR > 60.0 (>60) mL/min BUN/Creatinine Ratio 17.4 (6-22) Glucose 94 (70-100) mg/dL Calcium 9.3 (8.4-10.2) mg/dL Total Bilirubin 1.5 H (0.2-1.3) mg/dL AST 22 (14-36) IU/L ALT 18 (<35) IU/L Alkaline Phosphatase 52 (38-126) U/L Total Protein 6.6 (6.3-8.2) g/dL Albumin 4.3 (3.5-5.0) g/dL Globulin 2.3 (1.7-4.1) g/dL Albumin/Globulin Ratio 1.9 (1.0-2.8) HCG, Quant [id number] mIU/mL Point of care testing: Urine Dip Bedside Urine Glucose Negative Bedside Urine Bilirubin - Negative Bedside Urine Ketone - Negative Urine Specific [place] 1.030 Bedside Urine Occult Blood - Negative Bedside Urine pH 6 Bedside Urine Protein - Negative Bedside Urine Urobilinogen - Negative Bedside Urine Nitrite - Negative Bedside Urine Leukocytes - Negative Esterase Imaging Data US - OB: Radiologist's Impression: PROCEDURE:? US OB <= 14 WEEKS FETUS ? INDICATIONS:? LEFT PELVIC PAIN ? OUTSIDE/PRIOR DATING DATA:? Last menstrual period (LMP):? Unknown.? LMP-based estimated date of delivery (LATONIA):? Not applicable.? First dating scan (date and location):? 02/16/2021, [facility].? Estimated date of delivery (LATONIA) from first dating scan:? 09/16/2021.? ? TECHNIQUE:? Real-time scanning was performed of the fetus and maternal pelvic organs, with image documentation.? Endovaginal scanning was also performed to better visualize the fetus and maternal ovaries.? ? COMPARISON:? None from this ? FINDINGS:? ? Embryo:? A single live intrauterine is seen. The measured heart rate is 165 beats per minute. The crown-rump length measures 2.9 cm, corresponding to an estimated gestational age of 9 weeks 5 days.? A yolk sac can be seen.? It is too early for detailed anatomic assessment.? By visual inspection, the amount of amniotic fluid is within normal limits. No significant findings of subchorionic/perigestational hemorrhage are seen.? ? Measurement variability in dating:? +/- 4 weeks by LMP, +/- 7 days by mean sac diameter (use before 6 weeks gestation if crown-rump length not able to be measured), +/- 5 days by crown-rump length (up to 8 weeks 6 days gestation), +/- 7 days by crown-rump length (up to 13 weeks 6 days gestation).? ? Maternal organs:? There is a probable right ovarian corpus luteum.? The left ovary is not well seen. ? Prominent bilateral adnexal veins can be seen.? Please consider adnexal varices. ? ? IMPRESSION:? A single live intrauterine is seen. ? ? Close clinical followup, with serial beta-hCG and serial ultrasound are recommended, if clinically appropriate. ? 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 ? ? ? Dictated by: Betito Navas M.D. on 02/16/2021 at 10:55 ?? US - abdomen: Radiologist's Impression: PROCEDURE:? US RENAL COMPLETE ? INDICATIONS:? LEFT FLANK PAIN ? TECHNIQUE:? Real-time scanning was performed of the kidneys and bladder, with image documentation.? ? COMPARISON:? [facility], , US OB <= 14 WEEKS FETUS, 02/16/2021, 11:04. ? FINDINGS:? ? Kidneys:? Kidneys are normal in size.? Right kidney measures 9.5 cm long; left kidney measures 9.6 cm long.? Right renal cortical thickness is 1 cm; left renal cortical thickness is 1.8 cm.? Renal cortical echotexture is normal.? No hydronephrosis or nephrolithiasis.? No suspicious solid mass lesions.? ? The kidneys demonstrate generalized increased vascularity. ? Bladder:? Pre-void bladder volume is 14 mL.? Post-void residual was not measured.? Pre-void images demonstrate no intraluminal masses or stones.? On pre-void images, neither of the ureteral jets are noted with color Doppler interrogation.? (Of note, ureteral jets may not be detectable in up to 25% of cases due to insufficient differences in specific gravity between ureteral and bladder urine).? ? Miscellaneous:? No free pelvic fluid.? There is a simple cyst seen involving the right liver that measures up to 7 mm. ? IMPRESSION:? Abnormally increased vascularity of the kidneys.? Please consider nephritis. ? No hydronephrosis is seen. ? ? Dictated by: Betito Navas M.D. on 02/16/2021 at 11:02 ? ? Approved by: Betito Navas M.D. on 02/16/2021 at 11:03 ? MDM Narrative Medical decision making narrative: Patient is a 36 year-old female who has some left flank pain left lower quadrant pain. She is not having any vaginal bleeding. Ultrasound confirms IUP. She previously was diagnosed with UTI a few weeks ago with a growth Staph epidermidis, she says she only took 2 doses of antibiotics which were Keflex at that time she says symptoms improved and she found out she was so she stopped. She really has not had any fevers she is afebrile here she has no leukocytosis. She is having some left flank pain it no sign of kidney stone on ultrasound. Possible infection based on increased vascularity. I did discuss with her recommend starting antibiotics if her symptoms do not improve. At this time she agrees follow-up. Discharge Plan Departure Patient Disposition: Home Clinical Impression: Infection of kidney Instructions: DI for Kidney Infection Activity Restrictions/Additional Instructions: *You have been diagnosed with possible kidney infection *What to do: If he did not take antibiotics for your bladder infection previously may contact your kidneys. Although blood work and urine today are reassuring. Recommend antibiotics to see if it improves. No kidney stone. *Continue to take medications as directed Macrobid 100 mg twice a day for 7 days--> SENT TO [facility] *Follow up with your primary care provider in 2-3 days *Return to ER if you should have increasing pain, fevers, vaginal bleeding any new, worsening or concerning symptoms Prescriptions: New nitrofurantoin monohyd/m-cryst [Macrobid] 100 mg capsule 100 mg PO BID 7 Days Qty: 14 RF: 0 Referrals: Jose Robles MD [Primary Care Provider] -
[2021-02-16 11:44] LABS: HCG Quantitative /Beta subunit 240480 mIU/mL
[2021-02-16 12:30] VITALS: BP 93/61; PULSE 88; RESP 18; O2SAT 98
== END 2021-02-16 12:32 | disposition home or self-care (01) ==
PROVIDERS: Emergency Provider Emergency Medicine; Family Provider Family Medicine; PCP Family Medicine
DX: O26.91 Pregnancy related conditions, unspecified, first trimester (principal); N15.9 Renal tubulo-interstitial disease, unspecified; R11.0 Nausea; R10.2 Pelvic and perineal pain; Z3A.09 9 weeks gestation of pregnancy
CPT/HCPCS: 36415; 76770; 76801; 76817; 80053; 81003; 84702; 85025; 99284

== ENCOUNTER → 2021-02-24 14:42 | Outpatient (CLI) | payer OTHER, MEDICAID, SELFPAY ==
[2021-02-24 15:19] LABS: COVID19 -Nasal RAPID Negative (Negative)
== END ==
PROVIDERS: Family Provider Family Medicine; PCP Family Medicine; Visit Provider Family Medicine
DX: Z20.822 Contact with and (suspected) exposure to COVID-19 (principal); R05 Cough
CPT/HCPCS: 87635

== ENCOUNTER → 2021-03-19 08:54 | Outpatient (CLI) | payer OTHER, MEDICAID, SELFPAY ==
--- NOTE | 2021-03-19 | DI.RAD.S_ITS ---
PROCEDURE: XR CHEST 2V INDICATIONS: COUGH BRONCHITIS FOR 9 WEEKS TECHNIQUE: 2 views of the chest were acquired. COMPARISON: None. FINDINGS: Surgical changes and devices: None. Lungs and pleura: No consolidation, pleural effusions or pneumothorax. Mediastinum: Mediastinal contours are normal. Heart size is normal. Bones and chest wall: No suspicious bony abnormalities. Soft tissues appear unremarkable. IMPRESSION: No acute cardiopulmonary abnormality. Dictated by: Phuc Ramon M.D. on 03/19/2021 at 9:55 Approved by: Phuc Ramon M.D. on 03/19/2021 at 9:56
[2021-03-19 09:34] LABS: Add Manual Diff / Slide Review NO; Basophils Absolute Auto 0 /uL (0-100); Basophils Percent Auto 0.4 % (0-2); Eosinophils Absolute Auto 100 /uL (0-450); Eosinophils Percent Auto 1.4 % (2-4); Hematocrit 38.9 % (36-46); Hemoglobin 12.9 g/dL (12.0-16.0); Lymphocytes Absolute Auto 1700 /uL (1100-4500); Lymphocytes Percent Auto 22.9 % (25-40); Mean Corpuscular HGB Conc 33.1 % (30-36); Mean Corpuscular Hemoglobin 28.5 PG (26-34); Mean Corpuscular Volume 86.2 fL (80-100); Monocytes Absolute Auto 400 /uL (0-900); Monocytes Percent Auto 5.1 % (3-14); Neutrophils Absolute Auto 5200 /uL (1500-7000); Neutrophils Percent Auto 70.2 % (50-75); Platelet Count 260 X10^3/uL (150-400); Red Blood Cell Count 4.52 X10^6/uL (4.0-5.2); Red Cell Distribution Width 12.8 % (11.6-14.8); White Blood Cell Count 7.5 X10^3/uL (4.5-11.0)
[2021-03-19 09:34] LABS: COVID19 -Nasal RAPID Negative (Negative)
[2021-03-19 10:17] LABS: Appearance Urine UA CLEAR; Bilirubin Urine UA NEGATIVE (NEGATIVE); Color Urine UA YELLOW; Glucose Urine UA NEGATIVE (Negative); Ketones Urine UA NEGATIVE (NEGATIVE); Leukocyte Esterase Urine UA NEGATIVE (NEGATIVE); Nitrite Urine UA NEGATIVE (Negative); Occult Blood Urine UA NEGATIVE (Negative); Protein Urine UA NEGATIVE (Negative); Specific Gravity Urine UA 1.025 (1.000-1.035); Urobilinogen Urine UA 0.2 E.U./dL (0.2)
[2021-03-20 06:11] LABS: Varicella IgG Antibody 1654 index (Immune >165)
[2021-03-20 06:36] LABS: RPR Screen Non Reactive (Non Reactive)
[2021-03-20 15:52] LABS: Hepatitis B Surface Antigen NEGATIVE s/c (NEGATIVE)
[2021-03-20 16:11] LABS: HIV 1 & 2 Ab/Ag 4th Gen Combo NEGATIVE (NEGATIVE); Hep C Virus Ab w/Reflex Quant NEGATIVE s/c (NEGATIVE)
== END ==
PROVIDERS: Family Provider Family Medicine; PCP Family Medicine; Referring Provider Obstetrics & Gynecology; Visit Provider Obstetrics & Gynecology
DX: Z34.81 Encounter for supervision of other normal pregnancy, first trimester (principal); R05.9 Cough, unspecified; Z20.822 Contact with and (suspected) exposure to COVID-19
CPT/HCPCS: 36415; 71046; 80055; 81003; 86787; 86803; 86850; 86900; 86901; 87086; 87389; 87635

== ENCOUNTER 2021-08-29 20:12 | Observation (INO) | payer OTHER, MEDICAID, SELFPAY ==
[2021-08-29 21:29] LABS: Appearance Urine UA CLEAR; Bilirubin Urine UA NEGATIVE (NEGATIVE); Color Urine UA YELLOW; Glucose Urine UA TRACE g/dL (Negative); Ketones Urine UA TRACE (NEGATIVE); Leukocyte Esterase Urine UA NEGATIVE (NEGATIVE); Nitrite Urine UA NEGATIVE (Negative); Occult Blood Urine UA NEGATIVE (Negative); Protein Urine UA 1+ (Negative); Specific Gravity Urine UA 1.025 (1.000-1.035); Urobilinogen Urine UA 0.2 E.U./dL (0.2)
[2021-08-29 21:37] LABS: Bacteria Urine None Seen; RBC Urine None Seen (0-5/HPF); Renal Epithelial Cells Urine 0-1/HPF (0-1/HPF); Squamous Epithelial Cell Urine 1-5 /HPF (0-5/HPF); WBC Urine 5-10/HPF (0-5/HPF)
[2021-08-29] MEDS: ACETAMINOPHEN 325 MG TABLET 650 MG PO (21:37)
[2021-08-29 21:38] LABS: Culture Indicated Urine Specimen Cultured
--- NOTE | 2021-08-29 21:50 | P.TNLD_ITS ---
Visit Information Visit Information Date of evaluation: 08/29/21 On-call OB Provider: Shruti Clark Reason for Evaluation: Yes non-stress test Comments/Additional reasons for admission: Patient is a 36yo P2 @38 weeks with 2 prior CS, cared for at [facility], presenting for 2 days of suprapubic constant pain. No VB, LOF, fevers/chills, has had urinary frequency. Good movement. Denies complications, history of UTIs. Vital Signs Vital Signs: 109/74, HR 100, T 36.4C PFSH Medical History AMA (advanced maternal age) multigravida 35+ Anxiety (~2005) Bronchitis (~02/10/21) Chicken pox (~1985) Chronic back pain (~1999) Depression Dysuria Shingles Skin cancer (~2015) Syncopal episodes (~2016) Surgical History History of appendectomy History of section (~01/17/20) History of dilation and curettage (~05/2017) History of dilation and curettage (~10/17/18) History of primary section (~04/21/17) History of tonsillectomy and adenoidectomy [place] teeth extracted (~2004) Family History Father Family disruption due to parent-child estrangement Mother History of ETOH abuse Grandfather Family disruption due to parent-child estrangement Grandmother No problems noted. Grandfather Family disruption due to parent-child estrangement Grandmother Family disruption due to parent-child estrangement Family/Other Diabetes mellitus Myocardial infarction Family/Other Cancer Heavy smoker Family/Other Cancer Pancreatic cancer Sister Twin Family estrangement History of ETOH abuse Sister No problems noted. Sister No problems noted. 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 cecile/caodaism: [employer] special cecile needs: No Smoking Status: Never smoker second hand exposure: No alcohol intake: former (pre- : on occasion ) substance use type: does not use Review of Systems Constitutional Constitutional: Reports system reviewed and no additional complaints, except as documented Objective Labs Labs: Laboratory Results - last 24 hr 08/29/21 08:15 Urine Color Yellow Urine Appearance Clear Urine pH 5.0 Ur Specific [place] 1.025 Urine Protein 1+ H Urine Glucose (UA) Trace H Urine Ketones Trace H Urine Occult Blood Negative Urine Nitrate Negative Urine Bilirubin Negative Urine Urobilinogen 0.2 Ur Leukocyte Esterase Negative Urine RBC None seen Urine WBC 5-10/hpf H Ur Squamous Epith Cells 1-5 /hpf Ur Renal Epithelial Cell 0-1/hpf Urine Bacteria None seen Ur Culture Indicated? Specimen cultured Evaluation Evaluation Baseline heart rate: 140 Variability: Average (6-10) monitor accelerations: Present Monitor Decelerations: Absent Category of Tracing: Reactive Status: Category l Diagnosis, Plan/Disposition Plan/Disposition Plan: Patient has UA concerning for UTI, prolonged monitoring with reassuring status, and no contractions on monitor. Per staff, has mild suprapubic tenderness and concentrated, foul appearing urine. For course of keflex for UTI, precautions for return discussed. Patient lives near hospital. OB Disposition: home
[2021-08-29] MEDS: cephALEXin 250 MG CAPSULE 500 MG PO (22:21)
== END 2021-08-29 22:36 | disposition home or self-care (01) ==
LOC: LABOR 20:16
PROVIDERS: Obstetrics & Gynecology; Admitting Provider Family Medicine; Family Provider Family Medicine; PCP Family Medicine; Referring Provider Family Medicine; Visit Provider Family Medicine
DX: O26.893 Other specified pregnancy related conditions, third trimester (principal); R10.2 Pelvic and perineal pain; Z3A.38 38 weeks gestation of pregnancy
CPT/HCPCS: 59025; 59050; 81001; 87086; G0378; G0379